=== PATIENT | female | born 1960 | race Caucasian/White ===

== ENCOUNTER 2017-11-08 14:48 | Emergency (ER) | payer MEDICAID ==
[~2017-11-08] VITALS: Ht 149.9 cm; Wt 71.4 kg
[~2017-11-08 14:48] MED LIST: ALBU8HFA PO; BACL10TA PO; BECL7.3A INH; DIPH-423 PO; ESTR2TAB PO; GABA600T2 OGT; OLOP2.5D EACHEYE; ONDA4TAB6 PO; ONDA8TAB13 PO; OXYC-145 PO; TRAZ-146 PO
[2017-11-08 14:55] VITALS: BP 128/92
== END 2017-11-08 20:05 | disposition left against medical advice (07) ==
LOC: ER 14:49
DX: R04.0 Epistaxis (principal); R51 Headache; Z53.21 Procedure and treatment not carried out due to patient leaving prior to being seen by health care provider

== ENCOUNTER 2018-03-28 10:33 | Inpatient (IN) | payer MEDICAID ==
[2018-03-26 16:48] LABS: BASOPHILS # (AUTO) 0.1 X10'3 (0-0.2); BASOPHILS % (AUTO) 0.6 % (0-1); EOSINOPHILS % (AUTO) 0.5 % (0-6); LYMPHOCYTES # (AUTO) 3.5 X10'3 (1.1-4.8); LYMPHOCYTES % (AUTO) 36.1 % (21-51); MEAN CORPUSCULAR HEMOGLOBIN 26.8 PG (27.0-31.0); MEAN CORPUSCULAR HGB CONC 32.7 % (33.0-36.5); MEAN CORPUSCULAR VOLUME 81.9 FL (78-98); MEAN PLATELET VOLUME 10.6 FL (7.4-10.4); MONOCYTES # (AUTO) 0.5 X10'3 (0-0.9); MONOCYTES % (AUTO) 5.1 % (2-12); NEUTROPHILS # (AUTO) 5.7 X10'3 (1.8-7.7); NEUTROPHILS % (AUTO) 57.7 % (42-75); PRE OP HEMATOCRIT 37.3 % (35.0-45.0); PRE OP HEMOGLOBIN 12.2 g/dL (12.0-16.0); PRE OP PLATELET COUNT 432 X10'3 (140-440); RED BLOOD COUNT 4.55 X10'6 (4.20-5.60); RED CELL DISTRIBUTION WIDTH 12.9 % (11.5-14.5)
[2018-03-26 16:52] LABS: PRE OP INR 1.1 INR; PRE OP PROTIME 10.9 SECONDS (9.0-12.0)
[2018-03-26 16:57] LABS: ALBUMIN 3.1 G/DL (3.4-5.0); ALBUMIN/GLOBULIN RATIO 0.6 (1.1-1.5); ALKALINE PHOSPHATASE 114 IU/L (46-116); BLOOD UREA NITROGEN 8 MG/DL (7-18); BUN/CREATININE RATIO 9.2 (6.6-38.0); CALCIUM 9.3 MG/DL (8.5-10.1); CHLORIDE 101 MMOL/L (99-107); CREATININE 0.87 MG/DL (0.40-0.90); PRE OP ALT 43 U/L (30-65); PRE OP ANION GAP 11 (8-16); PRE OP AST 24 U/L (10-37); PRE OP BILIRUB, TOTAL 0.2 MG/DL (0.0-1.0); PRE OP GLUCOSE 97 MG/DL (70-104); PRE OP SODIUM 138 MMOL/L (135-145); TOTAL CARBON DIOXIDE 25.7 MMOL/L (24-32); TOTAL PROTEIN 8.6 G/DL (6.4-8.2); eGFR 68 ML/MIN
[2018-03-26 17:00] LABS: PRE OP POTASSIUM 3.3 MMOL/L (3.4-5.1)
[2018-03-28] VITALS (20 sets, daily range): BP systolic 84–149; BP diastolic 48–77
[~2018-03-28] VITALS: Ht 149.9 cm; Wt 54.4 kg
[~2018-03-28 10:33] MED LIST changes: -BACL10TA PO; +CYAN10007 IM; +DOCU-267 PO; +MORP60TA66 PO; -OLOP2.5D EACHEYE; -ONDA4TAB6 PO; +ONDA8TAB13; -ONDA8TAB13 PO; -OXYC-145 PO; +OXYC15TA88 PO; +SERT50TA10 PO; -TRAZ-146 PO; +TRAZ-219 PO; +ceFOXitin 2 GM ADDvantage bag 100 ML IV ONE; +famotidine 20mg tablet PO ONE; +ringers solution, lacted 1,000 ML IV SCH
[2018-03-28] MEDS ORDERED: ALBUTEROL MDI PO PRN (11:35)
[2018-03-28] MEDS ORDERED: ondansetron 4mg rapidly disintigrating tab PO PRN (11:45)
[2018-03-28] MEDS ORDERED: ceFAZolin 1000mg inj ONE ×2 (12:38→13:20)
[2018-03-28] MEDS ORDERED: BUPIVAcaine/PF 2.5mg/ml (0.25%) 10ml vial ONE ×3 (12:38→15:43)
[2018-03-28] MEDS: gabapentin 300mg capsule PO SCH (13:00)
[2018-03-28] MEDS ORDERED: epiNEPHrine 1 mg/ml inj ONE (13:20)
[2018-03-28] MEDS: oxyCODONE IR 5mg (immed. release) tablet PO PRN ×2 (13:22→22:06)
[2018-03-28] MEDS ORDERED: naloxone 0.4 mg/ml inj IV PRN (14:00)
[2018-03-28] MEDS ORDERED: CADD PCA waste documentation MC PRN (14:00)
[2018-03-28] MEDS ORDERED: zolpidem 5mg tablet PO PRN (14:00)
[2018-03-28] MEDS ORDERED: MIDAZolam 5mg/5ml vial ONE ×2 (14:40→14:49)
[2018-03-28] MEDS ORDERED: fentaNYL /PF 50mcg/ml 5ml ampule ONE (14:41)
[2018-03-28] MEDS ORDERED: propofol inj 20 ML IV ONE (14:43)
[2018-03-28] MEDS ORDERED: rocuronium 10mg/ml inj IV ONE (14:43)
[2018-03-28] MEDS ORDERED: sevoflurane 250ml liquid IH ONE (14:44)
[2018-03-28] MEDS ORDERED: dexamethasone sod phosphate 10mg/ml inj ONE (14:44)
[2018-03-28] MEDS ORDERED: neostigmine methylsulfate 1 MG/ML 10ml vial ONE (14:44)
[2018-03-28] MEDS ORDERED: glycopyrrolate 0.2mg/ml inj ONE (14:44)
[2018-03-28] MEDS ORDERED: morphine sulfate /PF 0.5 MG/ML 10mL ampul ONE (15:51)
[2018-03-28] MEDS ORDERED: proCHLORperazine 10 MG/2 ml inj IV PRN ×2 (16:55→21:05)
[2018-03-28] MEDS ORDERED: ondansetron/PF 4mg/2ml inj IV PRN (16:55)
[2018-03-28] MEDS ORDERED: HYDROmorphone inj. 0.5 MG/0.5 ML DISP.SYRIN IV PRN (16:55)
[2018-03-28] MEDS ORDERED: meperidine/PF 25mg/ml syringe IV PRN ×3 (16:55)
[2018-03-28] MEDS ORDERED: ringers solution, lacted 1,000 ML IV SCH (16:55)
[2018-03-28] MEDS ORDERED: naloxone 2mg/2ml inj 2 MG in normal saline 500ml IV soln 500 ML IV PRN (16:57)
[2018-03-28] MEDS ORDERED: morphine/PF injection 20 MG, BUPIVAcaine 0.5% inj/PF 250 MG in normal saline 250ml IV s... EPI SCH (16:57)
[2018-03-28] MEDS ORDERED: fentaNYL/PF 50MCG/1 ML 2ML syringe ONE (17:48)
[2018-03-28] MEDS: HYDROmorphone inj. 0.5 MG/0.5 ML DISP.SYRIN IV PRN ×2 (19:01→19:20)
[2018-03-28] MEDS ORDERED: HYDROmorphone/NS 1 mg/ml CADD 50 ML IV SCH ×2 (19:30→21:00)
[2018-03-28] MEDS: HYDROmorphone/NS 1 mg/ml CADD 50 ML IV SCH ×3 (20:00→23:00)
[2018-03-28] MEDS: docusate sod 100mg capsule PO SCH (20:00)
[2018-03-28] MEDS ORDERED: non-formulary drug (Beclomethasone Dipropionate (Qvar 40 MCG INHALER) 2 PUFFS) INH SCH (20:00)
[2018-03-28] MEDS: morphine ER 30mg tablet PO SCH (20:55)
[2018-03-28] MEDS: traZODone 50mg tablet PO SCH (21:00)
[2018-03-28] MEDS: diphenhydrAMINE 25mg capsule PO SCH (21:00)
[2018-03-28] MEDS ORDERED: dextrose 5% water 500ml 500 ML IV ONE (21:05)
[2018-03-28] MEDS ORDERED: normal saline 500ml IV soln 500 ML IV ONE ×2 (21:45→23:20)
[2018-03-28] MEDS: Potassium Cl inj 20 MEQ in ringers solution, lacted 1,000 ML IV SCH ×2 (22:02→22:03)
[2018-03-29] VITALS (8 sets, daily range): BP systolic 91–107; BP diastolic 48–78
[2018-03-29] MEDS: ondansetron/PF 4mg/2ml inj IV PRN (00:04)
[2018-03-29] MEDS: sertraline 50mg tablet PO SCH ×2 (00:10→21:37)
[2018-03-29] MEDS: gabapentin 300mg capsule PO SCH ×4 (00:11→21:37)
[2018-03-29] MEDS: estradiol 1mg tablet PO SCH ×2 (00:11→21:37)
[2018-03-29] MEDS: traZODone 50mg tablet PO SCH ×2 (00:15→21:37)
[2018-03-29] MEDS: HYDROmorphone/NS 1 mg/ml CADD 50 ML IV SCH ×12 (01:00→23:00)
[2018-03-29] MEDS: albuterol 2.5 MG/3 ML nebule NEB SCH ×5 (02:15→21:01)
[2018-03-29 05:30] LABS: BASOPHILS % (AUTO) 0 % (0-1); EOSINOPHILS % (AUTO) 0 % (0-6); HEMATOCRIT 26.1 % (35.0-45.0); HEMOGLOBIN 8.7 g/dl (12.0-16.0); LYMPHOCYTES # (AUTO) 2.1 X10'3 (1.1-4.8); LYMPHOCYTES % (AUTO) 11.9 % (21-51); MEAN CORPUSCULAR HEMOGLOBIN 27.6 PG (27.0-31.0); MEAN CORPUSCULAR HGB CONC 33.3 % (33.0-36.5); MEAN CORPUSCULAR VOLUME 82.9 FL (78-98); MEAN PLATELET VOLUME 11.3 FL (7.4-10.4); MONOCYTES % (AUTO) 5.8 % (2-12); NEUTROPHILS # (AUTO) 14.9 X10'3 (1.8-7.7); NEUTROPHILS % (AUTO) 82.3 % (42-75); PLATELET COUNT 315 X10'3 (140-440); RED BLOOD COUNT 3.15 X10'6 (4.20-5.60); RED CELL DISTRIBUTION WIDTH 12.8 % (11.5-14.5)
[2018-03-29 05:49] LABS: ALBUMIN 2.2 G/DL (3.4-5.0); ANION GAP 13 (8-16); BLOOD UREA NITROGEN 7 MG/DL (7-18); BUN/CREATININE RATIO 9.6 (6.6-38.0); CALCIUM 8.1 MG/DL (8.5-10.1); CHLORIDE 105 MMOL/L (99-107); CREATININE 0.73 MG/DL (0.40-0.90); GLUCOSE 125 MG/DL (70-104); POTASSIUM 4.7 MMOL/L (3.5-5.1); SODIUM 139 MMOL/L (135-145); TOTAL CARBON DIOXIDE 20.9 MMOL/L (24-32); eGFR 83 ML/MIN
[2018-03-29] MEDS: Potassium Cl inj 20 MEQ in ringers solution, lacted 1,000 ML IV SCH ×2 (07:17→16:35)
[2018-03-29] MEDS: enoxaparin 40mg/0.4ml syringe SQ SCH (08:00)
[2018-03-29] MEDS: morphine ER 30mg tablet PO SCH ×2 (08:00→20:00)
[2018-03-29] MEDS: docusate sod 100mg capsule PO SCH ×2 (10:13→20:40)
[2018-03-29] MEDS ORDERED: normal saline 1000ml 1,000 ML IV ONE ×2 (10:50→11:10)
[2018-03-29] MEDS: LORazepam 2 mg/ml vial IV PRN ×3 (12:01→20:40)
[2018-03-29] MEDS: piperacillin/tazo 3.375gm/50ml 50 ML IV SCH ×2 (14:07→20:40)
[2018-03-29] MEDS: diphenhydrAMINE 25mg capsule PO SCH (21:00)
[2018-03-30] VITALS (12 sets, daily range): BP systolic 105–162; BP diastolic 63–84
[2018-03-30] MEDS: LORazepam 2 mg/ml vial IV PRN ×4 (00:35→20:07)
[2018-03-30] MEDS: Potassium Cl inj 20 MEQ in ringers solution, lacted 1,000 ML IV SCH ×3 (00:35→14:27)
[2018-03-30] MEDS: HYDROmorphone/NS 1 mg/ml CADD 50 ML IV SCH ×12 (01:00→23:00)
[2018-03-30] MEDS: piperacillin/tazo 3.375gm/50ml 50 ML IV SCH ×4 (02:32→20:08)
[2018-03-30 05:25] LABS: ALBUMIN 1.8 G/DL (3.4-5.0); ANION GAP 6 (8-16); BLOOD UREA NITROGEN 5 MG/DL (7-18); BUN/CREATININE RATIO 6.4 (6.6-38.0); CALCIUM 7.8 MG/DL (8.5-10.1); CHLORIDE 104 MMOL/L (99-107); CREATININE 0.78 MG/DL (0.40-0.90); GLUCOSE 105 MG/DL (70-104); SODIUM 135 MMOL/L (135-145); TOTAL CARBON DIOXIDE 25.1 MMOL/L (24-32); eGFR 77 ML/MIN
[2018-03-30] MEDS: albuterol 2.5 MG/3 ML nebule NEB SCH ×4 (07:13→20:06)
[2018-03-30] MEDS: gabapentin 300mg capsule PO SCH ×3 (07:30→20:06)
[2018-03-30] MEDS: docusate sod 100mg capsule PO SCH ×2 (07:30→20:00)
[2018-03-30] MEDS: enoxaparin 40mg/0.4ml syringe SQ SCH (07:30)
[2018-03-30] MEDS: morphine ER 30mg tablet PO SCH ×2 (07:31→20:00)
[2018-03-30 09:16] LABS: BASOPHILS # (AUTO) 0.1 X10'3 (0-0.2); BASOPHILS % (AUTO) 0.3 % (0-1); EOSINOPHILS % (AUTO) 0 % (0-6); LYMPHOCYTES # (AUTO) 1.8 X10'3 (1.1-4.8); LYMPHOCYTES % (AUTO) 8.2 % (21-51); MEAN CORPUSCULAR HEMOGLOBIN 28.1 PG (27.0-31.0); MEAN CORPUSCULAR HGB CONC 33.9 % (33.0-36.5); MEAN CORPUSCULAR VOLUME 82.8 FL (78-98); MEAN PLATELET VOLUME 11.5 FL (7.4-10.4); MONOCYTES % (AUTO) 4.6 % (2-12); NEUTROPHILS # (AUTO) 19.1 X10'3 (1.8-7.7); NEUTROPHILS % (AUTO) 86.9 % (42-75); PLATELET COUNT 231 X10'3 (140-440); RED CELL DISTRIBUTION WIDTH 13.1 % (11.5-14.5)
[2018-03-30 09:27] LABS: HEMATOCRIT 20.7 % (35.0-45.0)
[2018-03-30 10:09] LABS: LARGE PLATELETS FEW; PLATELET ESTIMATE NORMAL
[2018-03-30] MEDS: estradiol 1mg tablet PO SCH (20:06)
[2018-03-30] MEDS: lactobacillus rhamnosus 10,000 MMU CELLS/CAPSULE PO SCH (20:07)
[2018-03-30] MEDS: ondansetron/PF 4mg/2ml inj IV PRN (20:13)
[2018-03-30] MEDS: diphenhydrAMINE 25mg capsule PO SCH (21:53)
[2018-03-30] MEDS: sertraline 50mg tablet PO SCH (21:53)
[2018-03-30] MEDS: traZODone 50mg tablet PO SCH (21:53)
[2018-03-31] VITALS: BP 143/74
[2018-03-31] MEDS: HYDROmorphone/NS 1 mg/ml CADD 50 ML IV SCH ×9 (01:00→17:00)
[2018-03-31] MEDS: Potassium Cl inj 20 MEQ in ringers solution, lacted 1,000 ML IV SCH ×4 (01:06→22:47)
[2018-03-31] MEDS: piperacillin/tazo 3.375gm/50ml 50 ML IV SCH ×4 (01:07→20:20)
[2018-03-31] MEDS: LORazepam 2 mg/ml vial IV PRN (05:45)
[2018-03-31 06:36] LABS: BASOPHILS # (AUTO) 0.1 X10'3 (0-0.2); BASOPHILS % (AUTO) 0.4 % (0-1); EOSINOPHILS % (AUTO) 0.1 % (0-6); HEMATOCRIT 25.5 % (35.0-45.0); HEMOGLOBIN 8.7 g/dl (12.0-16.0); LYMPHOCYTES # (AUTO) 1.8 X10'3 (1.1-4.8); LYMPHOCYTES % (AUTO) 10.1 % (21-51); MEAN CORPUSCULAR HGB CONC 34.3 % (33.0-36.5); MEAN CORPUSCULAR VOLUME 84.5 FL (78-98); MEAN PLATELET VOLUME 11.3 FL (7.4-10.4); MONOCYTES # (AUTO) 0.9 X10'3 (0-0.9); MONOCYTES % (AUTO) 5.1 % (2-12); NEUTROPHILS # (AUTO) 15.4 X10'3 (1.8-7.7); NEUTROPHILS % (AUTO) 84.3 % (42-75); PLATELET COUNT 195 X10'3 (140-440); RED BLOOD COUNT 3.01 X10'6 (4.20-5.60); RED CELL DISTRIBUTION WIDTH 13.1 % (11.5-14.5); WHITE BLOOD COUNT 18.1 X10'3 (4.5-11.0)
[2018-03-31 06:52] LABS: ALBUMIN 1.7 G/DL (3.4-5.0); ANION GAP 9 (8-16); BLOOD UREA NITROGEN 5 MG/DL (7-18); BUN/CREATININE RATIO 7.7 (6.6-38.0); CALCIUM 7.8 MG/DL (8.5-10.1); CHLORIDE 105 MMOL/L (99-107); CREATININE 0.65 MG/DL (0.40-0.90); GLUCOSE 99 MG/DL (70-104); POTASSIUM 3.4 MMOL/L (3.5-5.1); SODIUM 140 MMOL/L (135-145); eGFR > 90 ML/MIN
[2018-03-31] MEDS: albuterol 2.5 MG/3 ML nebule NEB SCH ×2 (07:00→19:00)
[2018-03-31 07:08] VITALS: BP 142/78
[2018-03-31] MEDS: morphine ER 30mg tablet PO SCH ×2 (08:00→20:17)
[2018-03-31] MEDS: gabapentin 300mg capsule PO SCH ×3 (09:52→20:19)
[2018-03-31] MEDS: docusate sod 100mg capsule PO SCH ×2 (09:53→20:00)
[2018-03-31] MEDS: lactobacillus rhamnosus 10,000 MMU CELLS/CAPSULE PO SCH ×2 (09:53→20:15)
[2018-03-31] MEDS: enoxaparin 40mg/0.4ml syringe SQ SCH (09:54)
[2018-03-31 11:00] VITALS: BP 127/66
[2018-03-31 18:00] VITALS: BP 106/46
[2018-03-31] MEDS: oxyCODONE IR 5mg (immed. release) tablet PO PRN ×2 (18:02→22:28)
[2018-03-31] MEDS ORDERED: morphine ER 30mg tablet PO PRN (19:50)
[2018-03-31] MEDS ORDERED: magnesium Cl slow-release 64mg tablet PO PRN (19:50)
[2018-03-31] MEDS ORDERED: potassium Cl 20 mEq SR tablet PO PRN (19:50)
[2018-03-31] MEDS ORDERED: potassium Cl 40MEQ/NS 500ml 500 ML IV PRN ×2 (19:50)
[2018-03-31] MEDS ORDERED: magnesium 4gm in 100ml NS 100 ML IV PRN (19:50)
[2018-03-31] MEDS: potassium Cl 20 mEq SR tablet PO PRN (20:16)
[2018-03-31] MEDS: estradiol 1mg tablet PO SCH (20:17)
[2018-03-31] MEDS: diphenhydrAMINE 25mg capsule PO SCH (20:17)
[2018-03-31] MEDS: sertraline 50mg tablet PO SCH (20:18)
[2018-03-31] MEDS: traZODone 50mg tablet PO SCH (20:18)
[2018-04-01] VITALS: BP 140/75
[2018-04-01] MEDS: potassium Cl 20 mEq SR tablet PO PRN (00:20)
[2018-04-01] MEDS: morphine ER 30mg tablet PO SCH ×4 (02:00→20:00)
[2018-04-01] MEDS: piperacillin/tazo 3.375gm/50ml 50 ML IV SCH ×4 (02:02→20:32)
[2018-04-01] MEDS: Potassium Cl inj 20 MEQ in ringers solution, lacted 1,000 ML IV SCH ×3 (04:39→22:05)
[2018-04-01 05:10] LABS: BASOPHILS # (AUTO) 0.1 X10'3 (0-0.2); BASOPHILS % (AUTO) 0.5 % (0-1); EOSINOPHILS # (AUTO) 0.2 X10'3 (0-0.9); EOSINOPHILS % (AUTO) 2.1 % (0-6); HEMATOCRIT 26.9 % (35.0-45.0); HEMOGLOBIN 8.7 g/dl (12.0-16.0); LYMPHOCYTES # (AUTO) 2.7 X10'3 (1.1-4.8); LYMPHOCYTES % (AUTO) 24.5 % (21-51); MEAN CORPUSCULAR HEMOGLOBIN 27.6 PG (27.0-31.0); MEAN CORPUSCULAR HGB CONC 32.5 % (33.0-36.5); MEAN CORPUSCULAR VOLUME 84.9 FL (78-98); MEAN PLATELET VOLUME 10.5 FL (7.4-10.4); MONOCYTES # (AUTO) 0.7 X10'3 (0-0.9); MONOCYTES % (AUTO) 6.5 % (2-12); NEUTROPHILS # (AUTO) 7.2 X10'3 (1.8-7.7); NEUTROPHILS % (AUTO) 66.4 % (42-75); PLATELET COUNT 238 X10'3 (140-440); RED BLOOD COUNT 3.16 X10'6 (4.20-5.60); RED CELL DISTRIBUTION WIDTH 14.1 % (11.5-14.5); WHITE BLOOD COUNT 10.9 X10'3 (4.5-11.0)
[2018-04-01 05:28] LABS: ALBUMIN 1.7 G/DL (3.4-5.0); ANION GAP 7 (8-16); BLOOD UREA NITROGEN 5 MG/DL (7-18); BUN/CREATININE RATIO 6.2 (6.6-38.0); CALCIUM 7.9 MG/DL (8.5-10.1); CHLORIDE 107 MMOL/L (99-107); CREATININE 0.81 MG/DL (0.40-0.90); GLUCOSE 85 MG/DL (70-104); SODIUM 142 MMOL/L (135-145); TOTAL CARBON DIOXIDE 28.5 MMOL/L (24-32); eGFR 73 ML/MIN
[2018-04-01 07:00] VITALS: BP 142/83
[2018-04-01] MEDS: albuterol 2.5 MG/3 ML nebule NEB SCH ×4 (07:46→19:00)
[2018-04-01] MEDS: enoxaparin 40mg/0.4ml syringe SQ SCH (08:33)
[2018-04-01] MEDS: docusate sod 100mg capsule PO SCH ×2 (08:34→20:31)
[2018-04-01] MEDS: gabapentin 300mg capsule PO SCH ×3 (08:34→21:00)
[2018-04-01] MEDS: lactobacillus rhamnosus 10,000 MMU CELLS/CAPSULE PO SCH ×2 (08:34→20:31)
[2018-04-01] MEDS: oxyCODONE IR 5mg (immed. release) tablet PO PRN ×2 (11:12→15:36)
[2018-04-01] MEDS: ondansetron/PF 4mg/2ml inj IV PRN (11:41)
[2018-04-01 12:00] VITALS: BP 137/71
[2018-04-01] MEDS: LORazepam 2 mg/ml vial IV PRN (16:05)
[2018-04-01 20:00] VITALS: BP 107/66
[2018-04-01] MEDS: traZODone 50mg tablet PO SCH (21:00)
[2018-04-01] MEDS: diphenhydrAMINE 25mg capsule PO SCH (21:00)
[2018-04-01] MEDS: sertraline 50mg tablet PO SCH (21:00)
[2018-04-01] MEDS: estradiol 1mg tablet PO SCH (21:58)
[2018-04-02] VITALS: BP 121/72
[2018-04-02] MEDS: morphine ER 30mg tablet PO SCH ×4 (02:05→19:26)
[2018-04-02] MEDS: piperacillin/tazo 3.375gm/50ml 50 ML IV SCH ×4 (02:05→19:21)
[2018-04-02 03:24] LABS: BASOPHILS # (AUTO) 0.1 X10'3 (0-0.2); BASOPHILS % (AUTO) 0.7 % (0-1); EOSINOPHILS # (AUTO) 0.3 X10'3 (0-0.9); EOSINOPHILS % (AUTO) 3.4 % (0-6); HEMATOCRIT 23.4 % (35.0-45.0); HEMOGLOBIN 7.6 g/dl (12.0-16.0); LYMPHOCYTES # (AUTO) 1.9 X10'3 (1.1-4.8); LYMPHOCYTES % (AUTO) 23.7 % (21-51); MEAN CORPUSCULAR HEMOGLOBIN 27.6 PG (27.0-31.0); MEAN CORPUSCULAR HGB CONC 32.5 % (33.0-36.5); MEAN CORPUSCULAR VOLUME 84.9 FL (78-98); MEAN PLATELET VOLUME 9.9 FL (7.4-10.4); MONOCYTES # (AUTO) 0.5 X10'3 (0-0.9); MONOCYTES % (AUTO) 6.6 % (2-12); NEUTROPHILS # (AUTO) 5.3 X10'3 (1.8-7.7); NEUTROPHILS % (AUTO) 65.6 % (42-75); PLATELET COUNT 223 X10'3 (140-440); RED BLOOD COUNT 2.76 X10'6 (4.20-5.60); RED CELL DISTRIBUTION WIDTH 14.4 % (11.5-14.5); WHITE BLOOD COUNT 8.1 X10'3 (4.5-11.0)
[2018-04-02 03:28] LABS: ALBUMIN 1.5 G/DL (3.4-5.0); ANION GAP 4 (8-16); BLOOD UREA NITROGEN 3 MG/DL (7-18); BUN/CREATININE RATIO 3.6 (6.6-38.0); CALCIUM 7.7 MG/DL (8.5-10.1); CHLORIDE 105 MMOL/L (99-107); CREATININE 0.83 MG/DL (0.40-0.90); GLUCOSE 94 MG/DL (70-104); POTASSIUM 3.7 MMOL/L (3.5-5.1); SODIUM 139 MMOL/L (135-145); TOTAL CARBON DIOXIDE 29.7 MMOL/L (24-32); eGFR 71 ML/MIN
[2018-04-02] MEDS: Potassium Cl inj 20 MEQ in ringers solution, lacted 1,000 ML IV SCH ×3 (05:12→23:54)
[2018-04-02] MEDS: albuterol 2.5 MG/3 ML nebule NEB SCH ×4 (06:48→19:42)
[2018-04-02] MEDS: gabapentin 300mg capsule PO SCH (07:21)
[2018-04-02] MEDS: docusate sod 100mg capsule PO SCH ×2 (07:21→19:25)
[2018-04-02] MEDS: lactobacillus rhamnosus 10,000 MMU CELLS/CAPSULE PO SCH ×2 (07:21→19:25)
[2018-04-02] MEDS: enoxaparin 40mg/0.4ml syringe SQ SCH ×2 (07:22→10:04)
[2018-04-02] MEDS: oxyCODONE IR 5mg (immed. release) tablet PO PRN (09:59)
[2018-04-02 11:00] VITALS: BP 106/63
[2018-04-02] MEDS ORDERED: gabapentin 300mg capsule PO SCH (13:00)
[2018-04-02] MEDS: gabapentin 100mg capsule PO SCH ×2 (13:37→21:46)
[2018-04-02] MEDS ORDERED: lactose-reduced food (Ensure High Protein) 237ml bottle PO SCH (18:00)
[2018-04-02 20:00] VITALS: BP 134/75
[2018-04-02] MEDS: sertraline 50mg tablet PO SCH (21:46)
[2018-04-02] MEDS: diphenhydrAMINE 25mg capsule PO SCH (21:46)
[2018-04-02] MEDS: estradiol 1mg tablet PO SCH (21:46)
[2018-04-03] VITALS (10 sets, daily range): BP systolic 114–144; BP diastolic 55–82
[2018-04-03] MEDS: morphine ER 30mg tablet PO SCH ×4 (02:05→20:11)
[2018-04-03] MEDS: piperacillin/tazo 3.375gm/50ml 50 ML IV SCH ×4 (02:05→20:13)
[2018-04-03] MEDS: LORazepam 2 mg/ml vial IV PRN (02:13)
[2018-04-03] MEDS: albuterol 2.5 MG/3 ML nebule NEB SCH ×3 (06:59→19:00)
[2018-04-03] MEDS: docusate sod 100mg capsule PO SCH ×3 (08:00→20:10)
[2018-04-03] MEDS: gabapentin 100mg capsule PO SCH ×3 (08:53→22:35)
[2018-04-03] MEDS: lactobacillus rhamnosus 10,000 MMU CELLS/CAPSULE PO SCH ×2 (08:54→20:11)
[2018-04-03] MEDS: Potassium Cl inj 20 MEQ in ringers solution, lacted 1,000 ML IV SCH (09:00)
[2018-04-03] MEDS: ondansetron/PF 4mg/2ml inj IV PRN (09:05)
[2018-04-03] MEDS: lactose-reduced food (Ensure High Protein) 237ml bottle PO SCH ×2 (13:00→18:00)
[2018-04-03 13:23] LABS: BASOPHILS % (AUTO) 0.5 % (0-1); EOSINOPHILS # (AUTO) 0.3 X10'3 (0-0.9); EOSINOPHILS % (AUTO) 4.3 % (0-6); HEMATOCRIT 25.5 % (35.0-45.0); HEMOGLOBIN 8.2 g/dl (12.0-16.0); LYMPHOCYTES # (AUTO) 1.8 X10'3 (1.1-4.8); MEAN CORPUSCULAR HEMOGLOBIN 27.5 PG (27.0-31.0); MEAN CORPUSCULAR HGB CONC 32.2 % (33.0-36.5); MEAN CORPUSCULAR VOLUME 85.5 FL (78-98); MEAN PLATELET VOLUME 9.7 FL (7.4-10.4); MONOCYTES # (AUTO) 0.5 X10'3 (0-0.9); MONOCYTES % (AUTO) 6.3 % (2-12); NEUTROPHILS # (AUTO) 5.1 X10'3 (1.8-7.7); NEUTROPHILS % (AUTO) 65.9 % (42-75); PLATELET COUNT 280 X10'3 (140-440); RED BLOOD COUNT 2.98 X10'6 (4.20-5.60); RED CELL DISTRIBUTION WIDTH 14.7 % (11.5-14.5); WHITE BLOOD COUNT 7.7 X10'3 (4.5-11.0)
[2018-04-03] MEDS ORDERED: MIDAZolam 5mg/5ml vial ONE (16:50)
[2018-04-03] MEDS ORDERED: ondansetron/PF 4mg/2ml inj ONE (16:51)
[2018-04-03] MEDS ORDERED: fentaNYL/PF 50MCG/1 ML 2ML syringe ONE ×2 (17:00→17:13)
[2018-04-03] MEDS ORDERED: ketamine 50mg/5ml syringe ONE (17:02)
[2018-04-03] MEDS: traZODone 50mg tablet PO SCH (20:11)
[2018-04-03] MEDS: diphenhydrAMINE 25mg capsule PO SCH (21:00)
[2018-04-03] MEDS: estradiol 1mg tablet PO SCH (22:33)
[2018-04-03] MEDS: sertraline 50mg tablet PO SCH (22:36)
[2018-04-04] VITALS (8 sets, daily range): BP systolic 100–128; BP diastolic 56–79
[2018-04-04] MEDS: LORazepam 2 mg/ml vial IV PRN ×3 (01:51→23:36)
[2018-04-04] MEDS: piperacillin/tazo 3.375gm/50ml 50 ML IV SCH ×4 (02:12→20:02)
[2018-04-04] MEDS: morphine ER 30mg tablet PO SCH ×4 (04:05→20:02)
[2018-04-04] MEDS: albuterol 2.5 MG/3 ML nebule NEB SCH ×4 (07:00→19:00)
[2018-04-04] MEDS: lactobacillus rhamnosus 10,000 MMU CELLS/CAPSULE PO SCH ×2 (07:39→20:01)
[2018-04-04] MEDS: gabapentin 100mg capsule PO SCH ×3 (07:39→21:34)
[2018-04-04] MEDS: lactose-reduced food (Ensure High Protein) 237ml bottle PO SCH ×3 (08:00→18:20)
[2018-04-04] MEDS: docusate sod 100mg capsule PO SCH ×2 (08:00→20:01)
[2018-04-04] MEDS: oxyCODONE IR 5mg (immed. release) tablet PO PRN ×2 (09:53→21:37)
[2018-04-04 11:14] LABS: HEMATOCRIT 25.2 % (35.0-45.0); HEMOGLOBIN 8.2 g/dl (12.0-16.0); MEAN CORPUSCULAR HGB CONC 32.5 % (33.0-36.5); MEAN CORPUSCULAR VOLUME 86.1 FL (78-98); MEAN PLATELET VOLUME 10.3 FL (7.4-10.4); PLATELET COUNT 306 X10'3 (140-440); RED BLOOD COUNT 2.93 X10'6 (4.20-5.60); RED CELL DISTRIBUTION WIDTH 14.3 % (11.5-14.5)
[2018-04-04] MEDS: traZODone 50mg tablet PO SCH ×2 (20:01→21:00)
[2018-04-04] MEDS: diphenhydrAMINE 25mg capsule PO SCH (21:34)
[2018-04-04] MEDS: estradiol 1mg tablet PO SCH (21:34)
[2018-04-04] MEDS: sertraline 50mg tablet PO SCH (21:34)
[2018-04-05] MEDS: morphine ER 30mg tablet PO SCH ×4 (01:35→19:31)
[2018-04-05] MEDS: piperacillin/tazo 3.375gm/50ml 50 ML IV SCH ×4 (01:35→20:17)
[2018-04-05] MEDS: albuterol 2.5 MG/3 ML nebule NEB SCH ×3 (06:59→19:00)
[2018-04-05 07:44] VITALS: BP 103/60
[2018-04-05] MEDS: gabapentin 100mg capsule PO SCH ×3 (07:56→20:17)
[2018-04-05] MEDS: lactobacillus rhamnosus 10,000 MMU CELLS/CAPSULE PO SCH ×2 (07:56→19:31)
[2018-04-05] MEDS: docusate sod 100mg capsule PO SCH ×2 (07:57→19:32)
[2018-04-05] MEDS: lactose-reduced food (Ensure High Protein) 237ml bottle PO SCH ×3 (07:57→18:00)
[2018-04-05 08:46] LABS: ALBUMIN 1.7 G/DL (3.4-5.0); ANION GAP 6 (8-16); BLOOD UREA NITROGEN 5 MG/DL (7-18); BUN/CREATININE RATIO 5.7 (6.6-38.0); CALCIUM 7.8 MG/DL (8.5-10.1); CHLORIDE 105 MMOL/L (99-107); CREATININE 0.88 MG/DL (0.40-0.90); GLUCOSE 132 MG/DL (70-104); POTASSIUM 3.4 MMOL/L (3.5-5.1); SODIUM 141 MMOL/L (135-145); TOTAL CARBON DIOXIDE 30.2 MMOL/L (24-32); eGFR 67 ML/MIN
[2018-04-05] MEDS: oxyCODONE IR 5mg (immed. release) tablet PO PRN ×2 (10:43→23:39)
[2018-04-05 11:00] VITALS: BP 92/39
[2018-04-05] MEDS: HYDROmorphone 1 mg/ml syringe IV PRN (11:30)
[2018-04-05 12:45] LABS: BASOPHILS % (AUTO) 0.4 % (0-1); EOSINOPHILS # (AUTO) 0.4 X10'3 (0-0.9); EOSINOPHILS % (AUTO) 3.1 % (0-6); HEMATOCRIT 27.6 % (35.0-45.0); HEMOGLOBIN 8.8 g/dl (12.0-16.0); LYMPHOCYTES % (AUTO) 24.1 % (21-51); MEAN CORPUSCULAR HEMOGLOBIN 27.3 PG (27.0-31.0); MEAN CORPUSCULAR HGB CONC 31.8 % (33.0-36.5); MEAN CORPUSCULAR VOLUME 85.7 FL (78-98); MEAN PLATELET VOLUME 10.6 FL (7.4-10.4); MONOCYTES # (AUTO) 0.5 X10'3 (0-0.9); MONOCYTES % (AUTO) 4.2 % (2-12); NEUTROPHILS # (AUTO) 8.6 X10'3 (1.8-7.7); NEUTROPHILS % (AUTO) 68.2 % (42-75); PLATELET COUNT 374 X10'3 (140-440); RED BLOOD COUNT 3.22 X10'6 (4.20-5.60); RED CELL DISTRIBUTION WIDTH 14.8 % (11.5-14.5); WHITE BLOOD COUNT 12.6 X10'3 (4.5-11.0)
[2018-04-05] MEDS ORDERED: potassium Cl 20 mEq SR tablet PO PRN ×2 (12:45)
[2018-04-05] MEDS ORDERED: potassium Cl 40MEQ/NS 500ml 500 ML IV PRN ×2 (12:45)
[2018-04-05] MEDS ORDERED: magnesium Cl slow-release 64mg tablet PO PRN (12:45)
[2018-04-05] MEDS ORDERED: magnesium 4gm in 100ml NS 100 ML IV PRN (12:45)
[2018-04-05 13:24] LABS: GIANT PLATELET FEW; LARGE PLATELETS FEW; PLATELET ESTIMATE NORMAL
[2018-04-05 16:12] VITALS: BP 95/54
[2018-04-05 18:00] VITALS: BP 117/66
[2018-04-05] MEDS: traZODone 50mg tablet PO SCH (19:32)
[2018-04-05] MEDS: estradiol 1mg tablet PO SCH (20:16)
[2018-04-05] MEDS: diphenhydrAMINE 25mg capsule PO SCH (20:16)
[2018-04-05] MEDS: sertraline 50mg tablet PO SCH (20:16)
[2018-04-05] MEDS: LORazepam 2 mg/ml vial IV PRN (20:41)
[2018-04-06] VITALS: BP 135/54
[2018-04-06] MEDS: morphine ER 30mg tablet PO SCH ×4 (02:04→19:10)
[2018-04-06] MEDS: piperacillin/tazo 3.375gm/50ml 50 ML IV SCH ×4 (02:04→19:10)
[2018-04-06] MEDS: LORazepam 2 mg/ml vial IV PRN ×3 (02:10→19:09)
[2018-04-06 07:00] VITALS: BP 110/63
[2018-04-06] MEDS: albuterol 2.5 MG/3 ML nebule NEB SCH ×4 (07:06→19:07)
[2018-04-06 08:00] VITALS: BP 110/63
[2018-04-06] MEDS: lactose-reduced food (Ensure High Protein) 237ml bottle PO SCH ×4 (08:00→18:31)
[2018-04-06] MEDS: lactobacillus rhamnosus 10,000 MMU CELLS/CAPSULE PO SCH ×2 (09:21→19:09)
[2018-04-06] MEDS: enoxaparin 40mg/0.4ml syringe SQ SCH (09:21)
[2018-04-06] MEDS: docusate sod 100mg capsule PO SCH ×2 (09:22→19:10)
[2018-04-06] MEDS: gabapentin 100mg capsule PO SCH ×3 (09:22→20:33)
[2018-04-06 11:00] VITALS: BP 109/59
[2018-04-06] MEDS: oxyCODONE IR 5mg (immed. release) tablet PO PRN ×2 (12:56→23:44)
[2018-04-06 18:00] VITALS: BP 138/66
[2018-04-06] MEDS: traZODone 50mg tablet PO SCH (19:10)
[2018-04-06] MEDS: diphenhydrAMINE 25mg capsule PO SCH (20:33)
[2018-04-06] MEDS: sertraline 50mg tablet PO SCH (20:34)
[2018-04-06] MEDS: estradiol 1mg tablet PO SCH (20:34)
[2018-04-06] MEDS ORDERED: albuterol 2.5 MG/3 ML nebule NEB PRN (23:25)
[2018-04-07] VITALS: BP 119/80
[2018-04-07] MEDS: LORazepam 2 mg/ml vial IV PRN ×4 (01:33→20:38)
[2018-04-07] MEDS: piperacillin/tazo 3.375gm/50ml 50 ML IV SCH ×4 (01:33→19:52)
[2018-04-07] MEDS: morphine ER 30mg tablet PO SCH ×4 (01:33→19:52)
[2018-04-07] MEDS: gabapentin 100mg capsule PO SCH ×3 (07:26→20:37)
[2018-04-07] MEDS: docusate sod 100mg capsule PO SCH ×2 (07:26→19:52)
[2018-04-07] MEDS: enoxaparin 40mg/0.4ml syringe SQ SCH (07:26)
[2018-04-07] MEDS: lactobacillus rhamnosus 10,000 MMU CELLS/CAPSULE PO SCH ×2 (07:26→19:52)
[2018-04-07 07:45] VITALS: BP 120/63
[2018-04-07] MEDS: lactose-reduced food (Ensure High Protein) 237ml bottle PO SCH ×3 (08:00→18:13)
[2018-04-07 12:00] VITALS: BP 113/66
[2018-04-07] MEDS: HYDROmorphone 1 mg/ml syringe IV PRN ×2 (12:05→16:32)
[2018-04-07 18:00] VITALS: BP 115/68
[2018-04-07] MEDS: traZODone 50mg tablet PO SCH (19:52)
[2018-04-07] MEDS: estradiol 1mg tablet PO SCH (20:37)
[2018-04-07] MEDS: diphenhydrAMINE 25mg capsule PO SCH (20:37)
[2018-04-07] MEDS: sertraline 50mg tablet PO SCH (20:37)
[2018-04-07] MEDS: oxyCODONE IR 5mg (immed. release) tablet PO PRN (21:47)
[2018-04-08] VITALS: BP 112/69
[2018-04-08] MEDS: morphine ER 30mg tablet PO SCH ×4 (01:49→19:48)
[2018-04-08] MEDS: LORazepam 2 mg/ml vial IV PRN ×4 (01:49→19:43)
[2018-04-08] MEDS: oxyCODONE IR 5mg (immed. release) tablet PO PRN ×3 (04:19→23:00)
[2018-04-08 07:40] VITALS: BP 138/79
[2018-04-08] MEDS: gabapentin 100mg capsule PO SCH ×3 (07:52→21:03)
[2018-04-08] MEDS: lactobacillus rhamnosus 10,000 MMU CELLS/CAPSULE PO SCH ×2 (07:52→19:43)
[2018-04-08] MEDS: enoxaparin 40mg/0.4ml syringe SQ SCH (07:52)
[2018-04-08] MEDS: docusate sod 100mg capsule PO SCH ×2 (07:52→19:44)
[2018-04-08] MEDS: lactose-reduced food (Ensure High Protein) 237ml bottle PO SCH ×3 (07:56→18:04)
[2018-04-08 11:50] VITALS: BP 131/66
[2018-04-08 18:30] VITALS: BP 118/63
[2018-04-08] MEDS: traZODone 50mg tablet PO SCH (19:44)
[2018-04-08] MEDS: diphenhydrAMINE 25mg capsule PO SCH (21:03)
[2018-04-08] MEDS: sertraline 50mg tablet PO SCH (21:03)
[2018-04-08] MEDS: estradiol 1mg tablet PO SCH (21:03)
[2018-04-09] VITALS: BP 133/70
[2018-04-09] MEDS: morphine ER 30mg tablet PO SCH ×4 (02:23→20:31)
[2018-04-09] MEDS: oxyCODONE IR 5mg (immed. release) tablet PO PRN ×2 (04:19→19:09)
[2018-04-09 07:34] VITALS: BP 123/69
[2018-04-09] MEDS: docusate sod 100mg capsule PO SCH ×2 (08:17→20:31)
[2018-04-09] MEDS: lactobacillus rhamnosus 10,000 MMU CELLS/CAPSULE PO SCH ×2 (08:17→20:31)
[2018-04-09] MEDS: gabapentin 100mg capsule PO SCH ×3 (08:18→20:32)
[2018-04-09] MEDS: enoxaparin 40mg/0.4ml syringe SQ SCH (08:19)
[2018-04-09] MEDS: lactose-reduced food (Ensure High Protein) 237ml bottle PO SCH ×3 (08:20→18:00)
[2018-04-09] MEDS: ondansetron/PF 4mg/2ml inj IV PRN (09:08)
[2018-04-09] MEDS: LORazepam 2 mg/ml vial IV PRN (10:37)
[2018-04-09 11:36] VITALS: BP 108/70
[2018-04-09 16:15] VITALS: BP 111/65
[2018-04-09] MEDS: normal saline 1000ml 1,000 ML IV SCH (16:56)
[2018-04-09 17:43] LABS: BASOPHILS # (AUTO) 0.1 X10'3 (0-0.2); EOSINOPHILS # (AUTO) 0.3 X10'3 (0-0.9); EOSINOPHILS % (AUTO) 2.7 % (0-6); HEMATOCRIT 30.2 % (35.0-45.0); HEMOGLOBIN 9.8 g/dl (12.0-16.0); LYMPHOCYTES # (AUTO) 2.6 X10'3 (1.1-4.8); LYMPHOCYTES % (AUTO) 28.3 % (21-51); MEAN CORPUSCULAR HEMOGLOBIN 27.6 PG (27.0-31.0); MEAN CORPUSCULAR HGB CONC 32.3 % (33.0-36.5); MEAN CORPUSCULAR VOLUME 85.5 FL (78-98); MEAN PLATELET VOLUME 9.4 FL (7.4-10.4); MONOCYTES # (AUTO) 0.6 X10'3 (0-0.9); MONOCYTES % (AUTO) 6.9 % (2-12); NEUTROPHILS # (AUTO) 5.7 X10'3 (1.8-7.7); NEUTROPHILS % (AUTO) 61.1 % (42-75); PLATELET COUNT 419 X10'3 (140-440); RED BLOOD COUNT 3.53 X10'6 (4.20-5.60); RED CELL DISTRIBUTION WIDTH 15.9 % (11.5-14.5); WHITE BLOOD COUNT 9.3 X10'3 (4.5-11.0)
[2018-04-09 17:58] LABS: ALANINE AMINOTRANSFERASE 26 U/L (12-78); ALBUMIN 1.9 G/DL (3.4-5.0); ALBUMIN/GLOBULIN RATIO 0.4 (1.1-1.5); ALKALINE PHOSPHATASE 109 IU/L (46-116); ANION GAP 7 (8-16); ASPARTATE AMINO TRANSFERASE 32 U/L (10-37); BILIRUBIN,TOTAL 0.1 MG/DL (0.1-1.0); BLOOD UREA NITROGEN 6 MG/DL (7-18); BUN/CREATININE RATIO 8.5 (6.6-38.0); CALCIUM 8.4 MG/DL (8.5-10.1); CHLORIDE 105 MMOL/L (99-107); CREATININE 0.71 MG/DL (0.40-0.90); GLUCOSE 94 MG/DL (70-104); POTASSIUM 4.1 MMOL/L (3.5-5.1); SODIUM 138 MMOL/L (135-145); TOTAL CARBON DIOXIDE 26.3 MMOL/L (24-32); TOTAL PROTEIN 6.7 G/DL (6.4-8.2); eGFR 85 ML/MIN
[2018-04-09 18:30] VITALS: BP 133/69
[2018-04-09] MEDS: traZODone 50mg tablet PO SCH (20:31)
[2018-04-09] MEDS: sertraline 50mg tablet PO SCH (20:32)
[2018-04-09] MEDS: estradiol 1mg tablet PO SCH (20:32)
[2018-04-09] MEDS: diphenhydrAMINE 25mg capsule PO SCH (20:32)
[2018-04-09] MEDS: LORazepam 1 MG tablet PO PRN (21:27)
[2018-04-10] VITALS: BP 124/60
[2018-04-10] MEDS: morphine ER 30mg tablet PO SCH ×4 (01:49→19:24)
[2018-04-10] MEDS: oxyCODONE IR 5mg (immed. release) tablet PO PRN ×3 (05:11→20:44)
[2018-04-10 05:12] LABS: BASOPHILS # (AUTO) 0.1 X10'3 (0-0.2); BASOPHILS % (AUTO) 0.7 % (0-1); EOSINOPHILS # (AUTO) 0.3 X10'3 (0-0.9); EOSINOPHILS % (AUTO) 2.7 % (0-6); HEMATOCRIT 29.2 % (35.0-45.0); HEMOGLOBIN 9.4 g/dl (12.0-16.0); LYMPHOCYTES # (AUTO) 2.9 X10'3 (1.1-4.8); LYMPHOCYTES % (AUTO) 29.4 % (21-51); MEAN CORPUSCULAR HEMOGLOBIN 27.8 PG (27.0-31.0); MEAN CORPUSCULAR HGB CONC 32.1 % (33.0-36.5); MEAN CORPUSCULAR VOLUME 86.5 FL (78-98); MEAN PLATELET VOLUME 10.3 FL (7.4-10.4); MONOCYTES # (AUTO) 0.6 X10'3 (0-0.9); NEUTROPHILS % (AUTO) 61.2 % (42-75); PLATELET COUNT 407 X10'3 (140-440); RED BLOOD COUNT 3.38 X10'6 (4.20-5.60); RED CELL DISTRIBUTION WIDTH 15.7 % (11.5-14.5); WHITE BLOOD COUNT 9.9 X10'3 (4.5-11.0)
[2018-04-10] MEDS: normal saline 1000ml 1,000 ML IV SCH ×2 (05:23→18:01)
[2018-04-10 05:27] LABS: ALANINE AMINOTRANSFERASE 26 U/L (12-78); ALBUMIN 1.8 G/DL (3.4-5.0); ALBUMIN/GLOBULIN RATIO 0.4 (1.1-1.5); ALKALINE PHOSPHATASE 105 IU/L (46-116); ANION GAP 8 (8-16); ASPARTATE AMINO TRANSFERASE 33 U/L (10-37); BILIRUBIN,TOTAL 0.1 MG/DL (0.1-1.0); BLOOD UREA NITROGEN 7 MG/DL (7-18); CHLORIDE 106 MMOL/L (99-107); CREATININE 0.78 MG/DL (0.40-0.90); GLUCOSE 92 MG/DL (70-104); MAGNESIUM 1.9 MG/DL (1.5-2.4); POTASSIUM 3.9 MMOL/L (3.5-5.1); SODIUM 139 MMOL/L (135-145); TOTAL CARBON DIOXIDE 25.3 MMOL/L (24-32); TOTAL PROTEIN 6.5 G/DL (6.4-8.2); eGFR 77 ML/MIN
[2018-04-10 07:00] VITALS: BP 129/68
[2018-04-10] MEDS: gabapentin 100mg capsule PO SCH ×3 (07:39→20:39)
[2018-04-10] MEDS: docusate sod 100mg capsule PO SCH ×2 (07:39→19:24)
[2018-04-10] MEDS: lactobacillus rhamnosus 10,000 MMU CELLS/CAPSULE PO SCH ×2 (07:40→19:24)
[2018-04-10] MEDS: enoxaparin 40mg/0.4ml syringe SQ SCH (07:42)
[2018-04-10] MEDS: lactose-reduced food (Ensure High Protein) 237ml bottle PO SCH ×3 (07:43→13:31)
[2018-04-10 11:00] VITALS: BP 127/82
[2018-04-10] MEDS: HYDROmorphone 1 mg/ml syringe IV PRN ×2 (13:52→14:58)
[2018-04-10] MEDS: LORazepam 1 MG tablet PO PRN (13:56)
[2018-04-10] MEDS ORDERED: HYDROmorphone inj. 0.5 MG/0.5 ML DISP.SYRIN IV ONE (14:55)
[2018-04-10] MEDS ORDERED: HYDROmorphone 1 mg/ml syringe ONE (14:55)
[2018-04-10] MEDS: ondansetron/PF 4mg/2ml inj IV PRN (17:53)
[2018-04-10] MEDS: traZODone 50mg tablet PO SCH (19:24)
[2018-04-10 20:00] VITALS: BP 121/65
[2018-04-10] MEDS: diphenhydrAMINE 25mg capsule PO SCH (20:36)
[2018-04-10] MEDS: sertraline 50mg tablet PO SCH (20:39)
[2018-04-10] MEDS: estradiol 1mg tablet PO SCH (20:43)
[2018-04-11] VITALS: BP 122/67
[2018-04-11] MEDS: LORazepam 1 MG tablet PO PRN ×2 (00:53→07:55)
[2018-04-11] MEDS: oxyCODONE IR 5mg (immed. release) tablet PO PRN (00:54)
[2018-04-11] MEDS: morphine ER 30mg tablet PO SCH ×2 (02:19→07:49)
[2018-04-11] MEDS: HYDROmorphone 1 mg/ml syringe IV PRN (03:47)
[2018-04-11] MEDS: docusate sod 100mg capsule PO SCH (07:48)
[2018-04-11] MEDS: lactobacillus rhamnosus 10,000 MMU CELLS/CAPSULE PO SCH (07:48)
[2018-04-11] MEDS: gabapentin 100mg capsule PO SCH (07:49)
[2018-04-11] MEDS: enoxaparin 40mg/0.4ml syringe SQ SCH (07:50)
[2018-04-11] MEDS: normal saline 1000ml 1,000 ML IV SCH (07:51)
[2018-04-11] MEDS: lactose-reduced food (Ensure High Protein) 237ml bottle PO SCH (07:51)
[2018-04-11 08:00] VITALS: BP 110/59
[2018-04-11] MEDS ORDERED: cyanocobalamin 1,000 mcg/ml inj IM SCH (08:00)
[2018-04-11 08:32] VITALS: BP 110/59
== END 2018-04-11 13:12 | DRG 231 ==
LOC: PAS IN 10:33 → SUR 3N 10:46 → EDSTATUS 12:30 → PACU 17:29 → SUR 3N 20:05
PROVIDERS: ADMIT Surgery; ATTEND Family Medicine
PROC: 0DQN0ZZ Repair Sigmoid Colon, Open Approach (ICD-10-PCS; 2018-03-28)
PROC: 0DNW0ZZ Release Peritoneum, Open Approach (ICD-10-PCS; 2018-03-28)
PROC: 0T9B80Z Drainage of Bladder with Drainage Device, Via Natural or Artificial Opening Endoscopic (ICD-10-PCS; 2018-03-28)
PROC: 0DBN0ZZ Excision of Sigmoid Colon, Open Approach (ICD-10-PCS; 2018-03-28 14:44)
PROC: 30233N1 Transfusion of Nonautologous Red Blood Cells into Peripheral Vein, Percutaneous Approach (ICD-10-PCS; principal; 2018-03-30)
PROC: 2W03X6Z Change Pressure Dressing on Abdominal Wall (ICD-10-PCS; 2018-04-03)
DX: K63.2 Fistula of intestine (principal); R34 Anuria and oliguria; E43 Unspecified severe protein-calorie malnutrition; D62 Acute posthemorrhagic anemia; K56.7 Ileus, unspecified; D72.829 Elevated white blood cell count, unspecified; E87.6 Hypokalemia; F32.9 Major depressive disorder, single episode, unspecified; F41.1 Generalized anxiety disorder; G25.81 Restless legs syndrome; G89.4 Chronic pain syndrome; E66.9 Obesity, unspecified; R00.0 Tachycardia, unspecified; G43.909 Migraine, unspecified, not intractable, without status migrainosus; J45.909 Unspecified asthma, uncomplicated; K57.30 Diverticulosis of large intestine without perforation or abscess without bleeding; K66.0 Peritoneal adhesions (postprocedural) (postinfection); Z85.3 Personal history of malignant neoplasm of breast; Z90.710 Acquired absence of both cervix and uterus; Z85.43 Personal history of malignant neoplasm of ovary; Z90.13 Acquired absence of bilateral breasts and nipples; Z68.24 Body mass index [BMI] 24.0-24.9, adult; Z88.5 Allergy status to narcotic agent; Z88.8 Allergy status to other drugs, medicaments and biological substances; Z88.6 Allergy status to analgesic agent; Z91.040 Latex allergy status; Z79.899 Other long term (current) drug therapy
CPT/HCPCS: 36415; 71045; 76001; 80048; 80053; 82948; 83735; 85025; 85027; 85610; 85730; 86885; 86900; 86901; 86920; 87070; 93005; 94640; 94760; 97110; 97116; 97530; A6251; A7000; C1758; C1769; G0378; J0171; J0690; J0694; J0780; J1100; J1170; J1650; J2060; J2250; J2274; J2310; J2405; J2543; J2704; J2710; J3010; J3420; J3480; J3490; J7030; J7120; P9016; Q0163

== ENCOUNTER 2018-04-29 18:09 | Inpatient (IN) | payer MEDICAID ==
[~2018-04-29] VITALS: Ht 149.9 cm; Wt 53.2 kg
[2018-04-29 19:00] LABS: BASOPHILS # (AUTO) 0.1 X10'3 (0-0.2); BASOPHILS % (AUTO) 0.8 % (0-1); EOSINOPHILS # (AUTO) 0.2 X10'3 (0-0.9); EOSINOPHILS % (AUTO) 1.6 % (0-6); HEMATOCRIT 35.4 % (35.0-45.0); HEMOGLOBIN 11.3 g/dl (12.0-16.0); LYMPHOCYTES # (AUTO) 3.6 X10'3 (1.1-4.8); MEAN CORPUSCULAR HEMOGLOBIN 26.7 PG (27.0-31.0); MEAN CORPUSCULAR VOLUME 83.7 FL (78-98); MEAN PLATELET VOLUME 11.4 FL (7.4-10.4); MONOCYTES # (AUTO) 0.6 X10'3 (0-0.9); MONOCYTES % (AUTO) 6.1 % (2-12); NEUTROPHILS # (AUTO) 5.5 X10'3 (1.8-7.7); NEUTROPHILS % (AUTO) 55.5 % (42-75); RED BLOOD COUNT 4.22 X10'6 (4.20-5.60); RED CELL DISTRIBUTION WIDTH 15.2 % (11.5-14.5)
[2018-04-29 19:20] LABS: ALANINE AMINOTRANSFERASE 30 U/L (12-78); ALBUMIN 2.7 G/DL (3.4-5.0); ALBUMIN/GLOBULIN RATIO 0.6 (1.1-1.5); ALKALINE PHOSPHATASE 137 IU/L (46-116); ANION GAP 10 (8-16); ASPARTATE AMINO TRANSFERASE 20 U/L (10-37); BILIRUBIN,TOTAL 0.2 MG/DL (0.1-1.0); BLOOD UREA NITROGEN 6 MG/DL (7-18); BUN/CREATININE RATIO 7.1 (6.6-38.0); CALCIUM 8.7 MG/DL (8.5-10.1); CHLORIDE 101 MMOL/L (99-107); CREATININE 0.84 MG/DL (0.40-0.90); GLUCOSE 113 MG/DL (70-104); POTASSIUM 3.4 MMOL/L (3.5-5.1); SODIUM 138 MMOL/L (135-145); TOTAL CARBON DIOXIDE 27.4 MMOL/L (24-32); TOTAL PROTEIN 7.6 G/DL (6.4-8.2); eGFR 70 ML/MIN
[2018-04-29 19:34] LABS: CLARITY,URINE CLEAR (Clear); COLOR,URINE YELLOW (Yellow); GLUCOSE, URINE NEGATIVE (Neg); KETONES,URINE NEGATIVE (Neg); LEUKOCYTE ESTERASE ,URINE NEGATIVE (Neg); NITRITES, URINE NEGATIVE (Neg); OCCULT BLOOD,URINE NEGATIVE (Neg); PH,URINE 8.5 (4.8-8.0); PROTEIN,URINE NEGATIVE (Neg); UROBILINOGEN,URINE 0.2 E.U/dL (0.2-1.0)
[2018-04-29 19:35] LABS: PROTHROMBIN TIME 10.4 SECONDS (9.0-12.0)
[2018-04-29 19:40] LABS: PLATELET COUNT 336 X10'3 (140-440)
[2018-04-29] MEDS ORDERED: ondansetron/PF 4mg/2ml inj IV ONE (19:40)
[2018-04-29] MEDS ORDERED: HYDROmorphone 1 mg/ml syringe IV ONE (19:40)
[2018-04-29 19:42] LABS: UA COLLECTION TYPE CLN CATCH MIDSTREAM
[2018-04-29 20:07] LABS: LARGE PLATELETS FEW; PLATELET ESTIMATE NORMAL
[2018-04-29] MEDS ORDERED: MORP30CA16 PO (20:14)
[2018-04-29] MEDS ORDERED: MORP10CA11 PO (20:14)
[2018-04-29] MEDS ORDERED: EST1T PO (20:14)
[2018-04-29] MEDS ORDERED: TRAZ300T2 PO (20:14)
[2018-04-29] MEDS ORDERED: DOCU-28 PO (20:14)
[2018-04-29] MEDS ORDERED: GABA-530 PO (20:14)
[2018-04-29] MEDS ORDERED: ONDA4TAB9 SL (20:14)
[2018-04-29] MEDS ORDERED: DIPH25CA83 PO (20:14)
[2018-04-29] MEDS ORDERED: temazepam 15mg capsule PO PRN (21:00)
[2018-04-29] MEDS ORDERED: mag hydrox/Alum hydrox/simeth 30ml oral suspension PO PRN (21:30)
[2018-04-29] MEDS ORDERED: morphine 10 MG/5 ML UD oral solution PO PRN (21:30)
[2018-04-29] MEDS ORDERED: acetaminophen 325mg tablet PO PRN ×2 (21:30)
[2018-04-29] MEDS ORDERED: magnesium hydroxide 30ml (MOM) UD suspension PO PRN (21:30)
[2018-04-29 22:30] VITALS: BP 89/52
[2018-04-29] MEDS: normal saline 1000ml 1,000 ML IV SCH (22:41)
[2018-04-29 22:50] VITALS: BP 95/56
[2018-04-30] MEDS: morphine 4 MG/ML inj SYRINge IV PRN ×6 (00:32→22:35)
[2018-04-30 05:24] LABS: BASOPHILS # (AUTO) 0.1 X10'3 (0-0.2); BASOPHILS % (AUTO) 0.6 % (0-1); EOSINOPHILS # (AUTO) 0.3 X10'3 (0-0.9); EOSINOPHILS % (AUTO) 3.1 % (0-6); HEMATOCRIT 30.7 % (35.0-45.0); HEMOGLOBIN 9.8 g/dl (12.0-16.0); LYMPHOCYTES # (AUTO) 3.2 X10'3 (1.1-4.8); LYMPHOCYTES % (AUTO) 39.1 % (21-51); MEAN CORPUSCULAR HEMOGLOBIN 26.9 PG (27.0-31.0); MEAN CORPUSCULAR HGB CONC 31.9 % (33.0-36.5); MEAN CORPUSCULAR VOLUME 84.1 FL (78-98); MEAN PLATELET VOLUME 11.8 FL (7.4-10.4); MONOCYTES # (AUTO) 0.6 X10'3 (0-0.9); MONOCYTES % (AUTO) 7.7 % (2-12); NEUTROPHILS # (AUTO) 4.1 X10'3 (1.8-7.7); NEUTROPHILS % (AUTO) 49.5 % (42-75); PLATELET COUNT 259 X10'3 (140-440); RED BLOOD COUNT 3.66 X10'6 (4.20-5.60); RED CELL DISTRIBUTION WIDTH 14.9 % (11.5-14.5); WHITE BLOOD COUNT 8.3 X10'3 (4.5-11.0)
[2018-04-30 05:43] LABS: ALBUMIN 2.3 G/DL (3.4-5.0); ANION GAP 9 (8-16); BLOOD UREA NITROGEN 5 MG/DL (7-18); BUN/CREATININE RATIO 7.1 (6.6-38.0); CALCIUM 8.4 MG/DL (8.5-10.1); CHLORIDE 104 MMOL/L (99-107); GLUCOSE 97 MG/DL (70-104); POTASSIUM 3.7 MMOL/L (3.5-5.1); SODIUM 139 MMOL/L (135-145); TOTAL CARBON DIOXIDE 25.6 MMOL/L (24-32); eGFR 87 ML/MIN
[2018-04-30 06:37] LABS: LARGE PLATELETS FEW; PLATELET ESTIMATE NORMAL
[2018-04-30 07:55] VITALS: BP 84/46
[2018-04-30] MEDS: enoxaparin 40mg/0.4ml syringe SUBCUT SCH (08:00)
[2018-04-30] MEDS: normal saline 1000ml 1,000 ML IV SCH ×3 (08:43→20:26)
[2018-04-30] MEDS: gabapentin 100mg capsule PO SCH ×2 (08:44→20:25)
[2018-04-30] MEDS: estradiol 1mg tablet PO SCH (08:44)
[2018-04-30] MEDS: morphine ER 30mg tablet PO SCH ×2 (08:44→20:25)
[2018-04-30] MEDS: docusate sod 100mg capsule PO SCH ×2 (08:44→20:25)
[2018-04-30 12:00] VITALS: BP 102/58
[2018-04-30] MEDS ORDERED: OMEP20TA23 PO (13:55)
[2018-04-30] MEDS ORDERED: SERT100T PO (13:55)
[2018-04-30] MEDS ORDERED: TRAZ-219 PO (13:55)
[2018-04-30] MEDS ORDERED: CYAN10007 (13:55)
[2018-04-30] MEDS ORDERED: GABA-530 PO (13:55)
[2018-04-30 18:00] VITALS: BP 107/68
[2018-04-30] MEDS: traZODone 150mg tablet PO SCH (20:26)
[2018-04-30] MEDS: diphenhydrAMINE 25mg capsule PO SCH (20:26)
[2018-05-01] VITALS: BP 119/67
[2018-05-01] MEDS: morphine 4 MG/ML inj SYRINge IV PRN ×5 (02:36→19:27)
[2018-05-01] MEDS: normal saline 1000ml 1,000 ML IV SCH ×2 (04:35→17:15)
[2018-05-01 05:04] LABS: BASOPHILS % (AUTO) 0.6 % (0-1); EOSINOPHILS # (AUTO) 0.2 X10'3 (0-0.9); EOSINOPHILS % (AUTO) 3.1 % (0-6); HEMATOCRIT 31.3 % (35.0-45.0); LYMPHOCYTES # (AUTO) 3.2 X10'3 (1.1-4.8); LYMPHOCYTES % (AUTO) 45.3 % (21-51); MEAN CORPUSCULAR HEMOGLOBIN 26.9 PG (27.0-31.0); MEAN CORPUSCULAR HGB CONC 31.8 % (33.0-36.5); MEAN CORPUSCULAR VOLUME 84.4 FL (78-98); MEAN PLATELET VOLUME 10.9 FL (7.4-10.4); MONOCYTES # (AUTO) 0.5 X10'3 (0-0.9); MONOCYTES % (AUTO) 7.2 % (2-12); NEUTROPHILS # (AUTO) 3.1 X10'3 (1.8-7.7); NEUTROPHILS % (AUTO) 43.8 % (42-75); PLATELET COUNT 257 X10'3 (140-440); RED BLOOD COUNT 3.71 X10'6 (4.20-5.60); RED CELL DISTRIBUTION WIDTH 15.3 % (11.5-14.5); WHITE BLOOD COUNT 7.2 X10'3 (4.5-11.0)
[2018-05-01 05:18] LABS: ALBUMIN 2.1 G/DL (3.4-5.0); ANION GAP 6 (8-16); BLOOD UREA NITROGEN 3 MG/DL (7-18); BUN/CREATININE RATIO 4.5 (6.6-38.0); CALCIUM 8.4 MG/DL (8.5-10.1); CHLORIDE 109 MMOL/L (99-107); CREATININE 0.66 MG/DL (0.40-0.90); GLUCOSE 85 MG/DL (70-104); POTASSIUM 4.2 MMOL/L (3.5-5.1); SODIUM 141 MMOL/L (135-145); eGFR > 90 ML/MIN
[2018-05-01 07:30] VITALS: BP 117/64
[2018-05-01] MEDS: enoxaparin 40mg/0.4ml syringe SUBCUT SCH (08:00)
[2018-05-01] MEDS: morphine ER 30mg tablet PO SCH ×2 (08:49→20:28)
[2018-05-01] MEDS: docusate sod 100mg capsule PO SCH ×2 (08:49→20:00)
[2018-05-01] MEDS: gabapentin 100mg capsule PO SCH ×2 (08:49→20:29)
[2018-05-01] MEDS: diatr meglu/diatrizoate 30ml oral sol.-(3 dose) bottle PO SCH ×3 (08:50→15:58)
[2018-05-01] MEDS: estradiol 1mg tablet PO SCH (08:53)
[2018-05-01] MEDS: ondansetron/PF 4mg/2ml inj IV PRN ×2 (09:44→15:58)
[2018-05-01 11:54] VITALS: BP 122/65
[2018-05-01] MEDS ORDERED: diatrozoate meglu/diatrozoate sod (37% iodine) 120ML oral solution ONE (16:04)
[2018-05-01 18:26] LABS: % IRON SATURATION 7 % (11-46); IRON 18 UG/DL (49-151); TOTAL IRON BINDING CAPACITY 254 UG/DL (259-388)
[2018-05-01 20:00] VITALS: BP 127/68
[2018-05-01] MEDS: diphenhydrAMINE 25mg capsule PO SCH (20:29)
[2018-05-01] MEDS: traZODone 150mg tablet PO SCH (20:29)
[2018-05-01] MEDS: morphine 10mg/ml inj. IV PRN (23:16)
[2018-05-02] VITALS (18 sets, daily range): BP systolic 118–178; BP diastolic 52–87
[2018-05-02] MEDS: normal saline 1000ml 1,000 ML IV SCH ×3 (02:31→20:53)
[2018-05-02] MEDS: morphine 10mg/ml inj. IV PRN ×4 (03:32→16:52)
[2018-05-02 05:29] LABS: BASOPHILS # (AUTO) 0.2 X10'3 (0-0.2); BASOPHILS % (AUTO) 2.1 % (0-1); EOSINOPHILS # (AUTO) 0.2 X10'3 (0-0.9); EOSINOPHILS % (AUTO) 2.7 % (0-6); HEMATOCRIT 30.9 % (35.0-45.0); LYMPHOCYTES # (AUTO) 3.1 X10'3 (1.1-4.8); LYMPHOCYTES % (AUTO) 41.1 % (21-51); MEAN CORPUSCULAR HEMOGLOBIN 26.8 PG (27.0-31.0); MEAN CORPUSCULAR HGB CONC 32.3 % (33.0-36.5); MONOCYTES # (AUTO) 0.5 X10'3 (0-0.9); MONOCYTES % (AUTO) 6.9 % (2-12); NEUTROPHILS # (AUTO) 3.5 X10'3 (1.8-7.7); NEUTROPHILS % (AUTO) 47.2 % (42-75); PLATELET COUNT 267 X10'3 (140-440); RED BLOOD COUNT 3.73 X10'6 (4.20-5.60); RED CELL DISTRIBUTION WIDTH 15.2 % (11.5-14.5); WHITE BLOOD COUNT 7.4 X10'3 (4.5-11.0)
[2018-05-02 05:41] LABS: ALBUMIN 2.2 G/DL (3.4-5.0); ANION GAP 9 (8-16); BLOOD UREA NITROGEN 2 MG/DL (7-18); BUN/CREATININE RATIO 3.2 (6.6-38.0); CALCIUM 8.4 MG/DL (8.5-10.1); CHLORIDE 107 MMOL/L (99-107); CREATININE 0.63 MG/DL (0.40-0.90); GLUCOSE 82 MG/DL (70-104); POTASSIUM 3.6 MMOL/L (3.5-5.1); SODIUM 140 MMOL/L (135-145); TOTAL CARBON DIOXIDE 23.6 MMOL/L (24-32); eGFR > 90 ML/MIN
[2018-05-02] MEDS: enoxaparin 40mg/0.4ml syringe SUBCUT SCH (06:29)
[2018-05-02 06:43] LABS: LARGE PLATELETS FEW; PLATELET ESTIMATE NORMAL
[2018-05-02] MEDS: ondansetron/PF 4mg/2ml inj IV PRN ×3 (07:40→20:52)
[2018-05-02] MEDS: docusate sod 100mg capsule PO SCH ×2 (07:45→20:00)
[2018-05-02] MEDS: estradiol 1mg tablet PO SCH (07:47)
[2018-05-02] MEDS: morphine ER 30mg tablet PO SCH (07:47)
[2018-05-02] MEDS: gabapentin 100mg capsule PO SCH ×2 (07:47→20:00)
[2018-05-02 16:46] LABS: ALBUMIN 2.6 G/DL (3.4-5.0); ALBUMIN/GLOBULIN RATIO 0.5 (1.1-1.5); ALKALINE PHOSPHATASE 126 IU/L (46-116); BLOOD UREA NITROGEN 2 MG/DL (7-18); BUN/CREATININE RATIO 2.9 (6.6-38.0); CALCIUM 8.6 MG/DL (8.5-10.1); CHLORIDE 102 MMOL/L (99-107); CREATININE 0.68 MG/DL (0.40-0.90); PRE OP ALT 28 U/L (30-65); PRE OP ANION GAP 11 (8-16); PRE OP AST 31 U/L (10-37); PRE OP BILIRUB, TOTAL 0.3 MG/DL (0.0-1.0); PRE OP GLUCOSE 83 MG/DL (70-104); PRE OP POTASSIUM 3.5 MMOL/L (3.4-5.1); PRE OP SODIUM 137 MMOL/L (135-145); TOTAL CARBON DIOXIDE 23.7 MMOL/L (24-32); TOTAL PROTEIN 7.4 G/DL (6.4-8.2); eGFR 90 ML/MIN
[2018-05-02 16:49] LABS: PRE OP INR 1.1 INR; PRE OP PROTIME 11.4 SECONDS (9.0-12.0)
[2018-05-02] MEDS ORDERED: ringers solution, lacted 1,000 ML IV SCH (18:28)
[2018-05-02] MEDS ORDERED: ondansetron/PF 4mg/2ml inj IV PRN (18:30)
[2018-05-02] MEDS ORDERED: fentaNYL/PF 50MCG/1 ML 2ML syringe IV PRN (18:30)
[2018-05-02] MEDS ORDERED: HYDROmorphone inj. 0.5 MG/0.5 ML DISP.SYRIN IV PRN ×2 (18:30)
[2018-05-02] MEDS ORDERED: meperidine/PF 25mg/ml syringe IV PRN (18:30)
[2018-05-02] MEDS ORDERED: sevoflurane 250ml liquid IH ONE (18:31)
[2018-05-02] MEDS ORDERED: midazolam 2 mg/2 ml injection ONE (18:33)
[2018-05-02] MEDS ORDERED: fentaNYL /PF 50mcg/ml 5ml ampule ONE (18:33)
[2018-05-02] MEDS ORDERED: propofol inj 20 ML IV ONE (18:34)
[2018-05-02] MEDS ORDERED: rocuronium 10mg/ml inj IV ONE (19:04)
[2018-05-02] MEDS ORDERED: dexamethasone sod phosphate 4mg/ml inj. ONE (19:04)
[2018-05-02] MEDS ORDERED: neostigmine methylsulfate 1 MG/ML 10ml vial ONE (19:25)
[2018-05-02] MEDS ORDERED: glycopyrrolate 0.2mg/ml inj ONE (19:25)
[2018-05-02] MEDS ORDERED: ondansetron/PF 4mg/2ml inj ONE (19:25)
[2018-05-02] MEDS: fentaNYL/PF 50MCG/1 ML 2ML syringe IV PRN ×4 (19:35→19:59)
[2018-05-02] MEDS: traZODone 150mg tablet PO SCH (21:00)
[2018-05-02] MEDS: famotidine 20mg tablet PO SCH (21:00)
[2018-05-02] MEDS: diphenhydrAMINE 25mg capsule PO SCH (21:00)
[2018-05-02] MEDS ORDERED: naloxone 0.4 mg/ml inj IV PRN (21:30)
[2018-05-02] MEDS: HYDROmorphone/NS 1 mg/ml CADD 50 ML IV SCH ×2 (22:12→23:00)
[2018-05-03 00:15] VITALS: BP 156/99
[2018-05-03] MEDS: normal saline 1000ml 1,000 ML IV SCH ×3 (00:32→20:37)
[2018-05-03] MEDS: metoclopramide 5 mg/ml inj IV PRN ×2 (00:33→10:59)
[2018-05-03] MEDS: HYDROmorphone/NS 1 mg/ml CADD 50 ML IV SCH ×12 (01:00→23:00)
[2018-05-03 06:01] LABS: BASOPHILS # (AUTO) 0.1 X10'3 (0-0.2); BASOPHILS % (AUTO) 0.6 % (0-1); EOSINOPHILS # (AUTO) 0.1 X10'3 (0-0.9); EOSINOPHILS % (AUTO) 0.9 % (0-6); HEMATOCRIT 34.1 % (35.0-45.0); HEMOGLOBIN 11.1 g/dl (12.0-16.0); LYMPHOCYTES % (AUTO) 6.4 % (21-51); MEAN CORPUSCULAR HEMOGLOBIN 26.8 PG (27.0-31.0); MEAN CORPUSCULAR HGB CONC 32.6 % (33.0-36.5); MEAN CORPUSCULAR VOLUME 82.2 FL (78-98); MEAN PLATELET VOLUME 11.3 FL (7.4-10.4); MONOCYTES # (AUTO) 0.2 X10'3 (0-0.9); MONOCYTES % (AUTO) 1.3 % (2-12); NEUTROPHILS # (AUTO) 13.6 X10'3 (1.8-7.7); NEUTROPHILS % (AUTO) 90.8 % (42-75); PLATELET COUNT 335 X10'3 (140-440); RED BLOOD COUNT 4.15 X10'6 (4.20-5.60)
[2018-05-03 06:15] LABS: ALBUMIN 2.4 G/DL (3.4-5.0); ANION GAP 14 (8-16); BLOOD UREA NITROGEN 3 MG/DL (7-18); BUN/CREATININE RATIO 4.5 (6.6-38.0); CALCIUM 8.9 MG/DL (8.5-10.1); CHLORIDE 102 MMOL/L (99-107); CREATININE 0.66 MG/DL (0.40-0.90); GLUCOSE 126 MG/DL (70-104); SODIUM 136 MMOL/L (135-145); TOTAL CARBON DIOXIDE 19.6 MMOL/L (24-32); eGFR > 90 ML/MIN
[2018-05-03 07:00] VITALS: BP 137/84
[2018-05-03] MEDS: ondansetron/PF 4mg/2ml inj IV PRN (07:41)
[2018-05-03] MEDS: docusate sod 100mg capsule PO SCH ×2 (08:06→19:29)
[2018-05-03] MEDS: gabapentin 100mg capsule PO SCH ×2 (08:06→20:38)
[2018-05-03] MEDS: estradiol 1mg tablet PO SCH (08:06)
[2018-05-03 08:58] LABS: LARGE PLATELETS FEW; PLATELET ESTIMATE NORMAL
[2018-05-03 11:00] VITALS: BP 142/65
[2018-05-03 18:00] VITALS: BP 149/77
[2018-05-03] MEDS: NUT.TX.IMPAIRED DIGEST FXN (Ensure Clear) 237 ML PO SCH (18:00)
[2018-05-03] MEDS: diphenhydrAMINE 25mg capsule PO SCH (20:38)
[2018-05-03] MEDS: traZODone 150mg tablet PO SCH (20:38)
[2018-05-03] MEDS: famotidine 20mg tablet PO SCH (20:38)
[2018-05-04] VITALS: BP 143/73
[2018-05-04] MEDS: HYDROmorphone/NS 1 mg/ml CADD 50 ML IV SCH ×12 (01:00→23:00)
[2018-05-04 05:57] LABS: BASOPHILS # (AUTO) 0.1 X10'3 (0-0.2); BASOPHILS % (AUTO) 0.5 % (0-1); EOSINOPHILS # (AUTO) 0.1 X10'3 (0-0.9); EOSINOPHILS % (AUTO) 1.2 % (0-6); HEMOGLOBIN 10.6 g/dl (12.0-16.0); LYMPHOCYTES # (AUTO) 3.4 X10'3 (1.1-4.8); LYMPHOCYTES % (AUTO) 29.6 % (21-51); MEAN CORPUSCULAR HEMOGLOBIN 26.9 PG (27.0-31.0); MEAN CORPUSCULAR HGB CONC 32.3 % (33.0-36.5); MEAN CORPUSCULAR VOLUME 83.3 FL (78-98); MEAN PLATELET VOLUME 11.5 FL (7.4-10.4); MONOCYTES # (AUTO) 0.8 X10'3 (0-0.9); MONOCYTES % (AUTO) 6.6 % (2-12); NEUTROPHILS # (AUTO) 7.1 X10'3 (1.8-7.7); NEUTROPHILS % (AUTO) 62.1 % (42-75); PLATELET COUNT 319 X10'3 (140-440); RED BLOOD COUNT 3.96 X10'6 (4.20-5.60); RED CELL DISTRIBUTION WIDTH 15.3 % (11.5-14.5); WHITE BLOOD COUNT 11.4 X10'3 (4.5-11.0)
[2018-05-04] MEDS: normal saline 1000ml 1,000 ML IV SCH ×2 (05:58→17:36)
[2018-05-04 06:01] LABS: ALBUMIN 2.4 G/DL (3.4-5.0); ANION GAP 12 (8-16); BLOOD UREA NITROGEN 3 MG/DL (7-18); BUN/CREATININE RATIO 4.6 (6.6-38.0); CALCIUM 8.9 MG/DL (8.5-10.1); CHLORIDE 105 MMOL/L (99-107); CREATININE 0.65 MG/DL (0.40-0.90); GLUCOSE 92 MG/DL (70-104); POTASSIUM 3.2 MMOL/L (3.5-5.1); SODIUM 142 MMOL/L (135-145); TOTAL CARBON DIOXIDE 25.5 MMOL/L (24-32); eGFR > 90 ML/MIN
[2018-05-04 07:08] LABS: ANISOCYTOSIS 1+; LARGE PLATELETS FEW; MICROCYTOSIS 1+; PLATELET ESTIMATE NORMAL
[2018-05-04 07:12] VITALS: BP 139/58
[2018-05-04] MEDS: NUT.TX.IMPAIRED DIGEST FXN (Ensure Clear) 237 ML PO SCH ×3 (08:38→18:00)
[2018-05-04] MEDS: docusate sod 100mg capsule PO SCH ×2 (08:39→20:31)
[2018-05-04] MEDS: estradiol 1mg tablet PO SCH (08:39)
[2018-05-04] MEDS: gabapentin 100mg capsule PO SCH ×2 (08:40→20:32)
[2018-05-04] MEDS: CADD PCA waste documentation MC PRN (10:13)
[2018-05-04 11:30] VITALS: BP 130/75
[2018-05-04] MEDS ORDERED: magnesium Cl slow-release 64mg tablet PO PRN (11:55)
[2018-05-04] MEDS ORDERED: potassium Cl 20 mEq SR tablet PO PRN (11:55)
[2018-05-04] MEDS ORDERED: potassium Cl 40MEQ/NS 500ml 500 ML IV PRN ×2 (11:55)
[2018-05-04] MEDS ORDERED: magnesium 1gm/100ml D5W IVPB 100 ML IV PRN (11:55)
[2018-05-04] MEDS ORDERED: magnesium 4gm in 100ml NS 100 ML IV PRN (11:55)
[2018-05-04] MEDS: potassium Cl 20 mEq SR tablet PO PRN ×3 (13:03→21:44)
[2018-05-04 18:00] VITALS: BP 128/62
[2018-05-04] MEDS: diphenhydrAMINE 25mg capsule PO SCH (20:31)
[2018-05-04] MEDS: traZODone 150mg tablet PO SCH (20:31)
[2018-05-04] MEDS: famotidine 20mg tablet PO SCH (20:31)
[2018-05-05] VITALS: BP 126/68
[2018-05-05] MEDS: HYDROmorphone/NS 1 mg/ml CADD 50 ML IV SCH ×7 (01:00→13:00)
[2018-05-05] MEDS: normal saline 1000ml 1,000 ML IV SCH (03:26)
[2018-05-05 06:04] LABS: MAGNESIUM 1.5 MG/DL (1.5-2.4); POTASSIUM 3.8 MMOL/L (3.5-5.1)
[2018-05-05 07:20] VITALS: BP 143/72
[2018-05-05] MEDS: estradiol 1mg tablet PO SCH (08:58)
[2018-05-05] MEDS: gabapentin 100mg capsule PO SCH ×2 (08:58→20:08)
[2018-05-05] MEDS: NUT.TX.IMPAIRED DIGEST FXN (Ensure Clear) 237 ML PO SCH ×3 (08:58→18:00)
[2018-05-05] MEDS: docusate sod 100mg capsule PO SCH ×2 (08:58→20:00)
[2018-05-05 13:17] VITALS: BP 125/59
[2018-05-05] MEDS: CADD PCA waste documentation MC PRN (15:20)
[2018-05-05] MEDS: HYDROmorphone 2mg tablet PO PRN ×2 (15:47→20:06)
[2018-05-05] MEDS ORDERED: HYDROmorphone 2mg tablet PO STA (16:54)
[2018-05-05 19:05] VITALS: BP 157/73
[2018-05-05] MEDS: diphenhydrAMINE 25mg capsule PO SCH (20:08)
[2018-05-05] MEDS: traZODone 150mg tablet PO SCH (20:08)
[2018-05-05] MEDS: famotidine 20mg tablet PO SCH (20:09)
[2018-05-06] VITALS: BP 151/79
[2018-05-06] MEDS: HYDROmorphone 2mg tablet PO PRN ×3 (02:16→10:10)
[2018-05-06] MEDS: normal saline 1000ml 1,000 ML IV SCH (03:26)
[2018-05-06 05:14] LABS: BASOPHILS # (AUTO) 0.1 X10'3 (0-0.2); BASOPHILS % (AUTO) 0.7 % (0-1); EOSINOPHILS # (AUTO) 0.1 X10'3 (0-0.9); EOSINOPHILS % (AUTO) 0.6 % (0-6); HEMATOCRIT 31.8 % (35.0-45.0); HEMOGLOBIN 10.4 g/dl (12.0-16.0); LYMPHOCYTES # (AUTO) 1.9 X10'3 (1.1-4.8); LYMPHOCYTES % (AUTO) 20.7 % (21-51); MEAN CORPUSCULAR HGB CONC 32.8 % (33.0-36.5); MEAN CORPUSCULAR VOLUME 82.4 FL (78-98); MEAN PLATELET VOLUME 11.1 FL (7.4-10.4); MONOCYTES # (AUTO) 0.5 X10'3 (0-0.9); NEUTROPHILS # (AUTO) 6.7 X10'3 (1.8-7.7); PLATELET COUNT 314 X10'3 (140-440); RED BLOOD COUNT 3.86 X10'6 (4.20-5.60); RED CELL DISTRIBUTION WIDTH 15.3 % (11.5-14.5); WHITE BLOOD COUNT 9.1 X10'3 (4.5-11.0)
[2018-05-06 06:18] LABS: ALANINE AMINOTRANSFERASE 22 U/L (12-78); ALBUMIN 2.4 G/DL (3.4-5.0); ALBUMIN/GLOBULIN RATIO 0.6 (1.1-1.5); ALKALINE PHOSPHATASE 89 IU/L (46-116); ANION GAP 8 (8-16); ASPARTATE AMINO TRANSFERASE 19 U/L (10-37); BILIRUBIN,TOTAL 0.2 MG/DL (0.1-1.0); BLOOD UREA NITROGEN 5 MG/DL (7-18); BUN/CREATININE RATIO 8.9 (6.6-38.0); CALCIUM 8.6 MG/DL (8.5-10.1); CHLORIDE 106 MMOL/L (99-107); CREATININE 0.56 MG/DL (0.40-0.90); GLUCOSE 106 MG/DL (70-104); MAGNESIUM 1.7 MG/DL (1.5-2.4); POTASSIUM 3.4 MMOL/L (3.5-5.1); SODIUM 140 MMOL/L (135-145); TOTAL CARBON DIOXIDE 25.6 MMOL/L (24-32); TOTAL PROTEIN 6.7 G/DL (6.4-8.2); eGFR > 90 ML/MIN
[2018-05-06] MEDS: docusate sod 100mg capsule PO SCH ×2 (08:00→20:00)
[2018-05-06] MEDS: NUT.TX.IMPAIRED DIGEST FXN (Ensure Clear) 237 ML PO SCH ×3 (08:00→18:00)
[2018-05-06 08:08] VITALS: BP 168/86
[2018-05-06] MEDS: gabapentin 100mg capsule PO SCH ×2 (08:54→20:21)
[2018-05-06] MEDS: estradiol 1mg tablet PO SCH (08:54)
[2018-05-06] MEDS ORDERED: LORazepam 1 MG tablet PO PRN (10:00)
[2018-05-06] MEDS: ondansetron 4mg rapidly disintigrating tab PO PRN ×2 (10:09→20:22)
[2018-05-06] MEDS ORDERED: HYDROmorphone 1 mg/ml syringe IM ONE (10:10)
[2018-05-06] MEDS ORDERED: HYDROmorphone 1 mg/ml syringe IV PRN (10:55)
[2018-05-06 11:41] VITALS: BP 154/83
[2018-05-06] MEDS: oxyCODONE/APAP 10/325mg tablet PO SCH ×4 (12:00→20:25)
[2018-05-06] MEDS: LORazepam 1 MG tablet PO PRN ×3 (12:17→22:41)
[2018-05-06] MEDS: potassium Cl 20 mEq SR tablet PO PRN (17:36)
[2018-05-06 19:00] VITALS: BP 173/90
[2018-05-06] MEDS: famotidine 20mg tablet PO SCH (20:22)
[2018-05-06] MEDS: diphenhydrAMINE 25mg capsule PO SCH (20:22)
[2018-05-06] MEDS: traZODone 150mg tablet PO SCH (20:23)
[2018-05-07] VITALS: BP 117/64
[2018-05-07] MEDS: oxyCODONE/APAP 10/325mg tablet PO SCH ×4 (00:45→12:50)
[2018-05-07 05:17] LABS: BASOPHILS # (AUTO) 0.1 X10'3 (0-0.2); BASOPHILS % (AUTO) 1.3 % (0-1); EOSINOPHILS # (AUTO) 0.1 X10'3 (0-0.9); EOSINOPHILS % (AUTO) 0.7 % (0-6); HEMATOCRIT 31.9 % (35.0-45.0); HEMOGLOBIN 10.3 g/dl (12.0-16.0); LYMPHOCYTES # (AUTO) 2.3 X10'3 (1.1-4.8); LYMPHOCYTES % (AUTO) 26.6 % (21-51); MEAN CORPUSCULAR HEMOGLOBIN 26.8 PG (27.0-31.0); MEAN CORPUSCULAR HGB CONC 32.4 % (33.0-36.5); MEAN CORPUSCULAR VOLUME 82.6 FL (78-98); MEAN PLATELET VOLUME 10.7 FL (7.4-10.4); MONOCYTES # (AUTO) 0.6 X10'3 (0-0.9); MONOCYTES % (AUTO) 6.8 % (2-12); NEUTROPHILS # (AUTO) 5.7 X10'3 (1.8-7.7); NEUTROPHILS % (AUTO) 64.6 % (42-75); PLATELET COUNT 347 X10'3 (140-440); RED BLOOD COUNT 3.86 X10'6 (4.20-5.60); RED CELL DISTRIBUTION WIDTH 15.6 % (11.5-14.5); WHITE BLOOD COUNT 8.8 X10'3 (4.5-11.0)
[2018-05-07 05:38] LABS: ALANINE AMINOTRANSFERASE 28 U/L (12-78); ALBUMIN 2.3 G/DL (3.4-5.0); ALBUMIN/GLOBULIN RATIO 0.5 (1.1-1.5); ALKALINE PHOSPHATASE 96 IU/L (46-116); ANION GAP 9 (8-16); ASPARTATE AMINO TRANSFERASE 19 U/L (10-37); BILIRUBIN,TOTAL 0.2 MG/DL (0.1-1.0); BLOOD UREA NITROGEN 10 MG/DL (7-18); BUN/CREATININE RATIO 13.9 (6.6-38.0); CHLORIDE 106 MMOL/L (99-107); CREATININE 0.72 MG/DL (0.40-0.90); GLUCOSE 107 MG/DL (70-104); MAGNESIUM 1.9 MG/DL (1.5-2.4); POTASSIUM 4.1 MMOL/L (3.5-5.1); SODIUM 141 MMOL/L (135-145); TOTAL CARBON DIOXIDE 26.4 MMOL/L (24-32); TOTAL PROTEIN 6.8 G/DL (6.4-8.2); eGFR 84 ML/MIN
[2018-05-07 05:44] LABS: PLATELET ESTIMATE NORMAL
[2018-05-07 05:45] LABS: LARGE PLATELETS FEW
[2018-05-07 07:00] VITALS: BP 116/68
[2018-05-07] MEDS: NUT.TX.IMPAIRED DIGEST FXN (Ensure Clear) 237 ML PO SCH ×2 (08:33→13:02)
[2018-05-07] MEDS: docusate sod 100mg capsule PO SCH (08:33)
[2018-05-07] MEDS: estradiol 1mg tablet PO SCH (08:33)
[2018-05-07] MEDS: gabapentin 100mg capsule PO SCH (08:34)
[2018-05-07] MEDS: ondansetron 4mg rapidly disintigrating tab PO PRN (08:37)
[2018-05-07] MEDS: LORazepam 1 MG tablet PO PRN (11:02)
[2018-05-07] MEDS ORDERED: PER10325T PO (11:04)
[2018-05-07] MEDS ORDERED: ATI1T PO (11:04)
[2018-05-07 11:30] VITALS: BP 129/73
== END 2018-05-07 14:00 | disposition home health service (06) | DRG 231 ==
LOC: ER 18:10 → ED HOLD 21:26 → SUR 3N 22:30 → PACU 05-02 18:08 → SUR 3N 05-02 21:00
PROVIDERS: ADMIT Hospitalist; ATTEND Hospitalist
PROC: 0D1K0Z4 Bypass Ascending Colon to Cutaneous, Open Approach (ICD-10-PCS; principal; 2018-05-03)
DX: K63.2 Fistula of intestine (principal); E43 Unspecified severe protein-calorie malnutrition; D63.8 Anemia in other chronic diseases classified elsewhere; D72.829 Elevated white blood cell count, unspecified; Z68.23 Body mass index [BMI] 23.0-23.9, adult; E61.1 Iron deficiency; E78.00 Pure hypercholesterolemia, unspecified; E86.0 Dehydration; E87.6 Hypokalemia; F41.1 Generalized anxiety disorder; G89.4 Chronic pain syndrome; L25.9 Unspecified contact dermatitis, unspecified cause; F32.9 Major depressive disorder, single episode, unspecified; G43.909 Migraine, unspecified, not intractable, without status migrainosus; I10 Essential (primary) hypertension; J45.909 Unspecified asthma, uncomplicated; Z85.3 Personal history of malignant neoplasm of breast; Z88.6 Allergy status to analgesic agent; Z88.8 Allergy status to other drugs, medicaments and biological substances; Z91.041 Radiographic dye allergy status; Z91.040 Latex allergy status; Z85.43 Personal history of malignant neoplasm of ovary; Z87.442 Personal history of urinary calculi; Z90.13 Acquired absence of bilateral breasts and nipples; Z90.49 Acquired absence of other specified parts of digestive tract; Z90.710 Acquired absence of both cervix and uterus; Z98.82 Breast implant status; Z98.891 History of uterine scar from previous surgery; Z82.49 Family history of ischemic heart disease and other diseases of the circulatory system
CPT/HCPCS: 36415; 74176; 80048; 80053; 81003; 83540; 83550; 83735; 84132; 85025; 85610; 85730; 87070; 93005; 96374; 96375; 99285; A4421; A6449; A7000; G0378; J1100; J1170; J2250; J2270; J2405; J2704; J2710; J2765; J3010; J3490; J7030; J7120; Q0163; Q2037; Q9963

== ENCOUNTER 2018-06-14 08:28 | Outpatient (CLI) | payer MEDICAID ==
[~2018-06-14 08:28] MED LIST changes: -ALBU8HFA PO; +ATI1T PO; -BECL7.3A INH; +CYAN10007; -CYAN10007 IM; -DIPH-423 PO; +DIPH25CA83 PO; -DOCU-267 PO; +DOCU-28 PO; +EST1T PO; -ESTR2TAB PO; +GABA-530 PO; -GABA600T2 OGT; -MORP60TA66 PO; +OMEP20TA23 PO; +ONDA4TAB9 SL; -ONDA8TAB13; -OXYC15TA88 PO; +PER10325T PO; +SERT100T PO; -SERT50TA10 PO; +TRAZ300T2 PO; -ceFOXitin 2 GM ADDvantage bag 100 ML IV ONE; -famotidine 20mg tablet PO ONE; -ringers solution, lacted 1,000 ML IV SCH
[2018-06-14] MEDS ORDERED: BARIUM SULFATE/METHYLCELLULOSE 600 ML SUSPENSION BOTTLE**DONT ENTER PO ONE ×2 (09:17→09:28)
[2018-06-26] MEDS ORDERED: POTA10CA44 PO (10:01)
[2018-06-26] MEDS ORDERED: LORA1TAB PO (10:01)
[2018-06-26] MEDS ORDERED: CHOL100044 PO (10:01)
[2018-06-26] MEDS ORDERED: ALBU18HF2 INH (10:01)
[2018-06-26] MEDS ORDERED: TRAZ-219 PO (12:25)
[2018-06-26] MEDS ORDERED: CYAN10006 IM (12:27)
== END 2018-06-14 23:59 | disposition home or self-care (01) ==
LOC: RAD 08:28
PROVIDERS: ATTEND Surgery
DX: K63.2 Fistula of intestine (principal)
CPT/HCPCS: 74270

== ENCOUNTER 2018-06-27 05:26 | Inpatient (IN) | payer MEDICAID | END 2018-07-06 13:19 | disposition home health service (06) | LOC: PAS IN 05:26 → SUR 3N 12:19 | DX: Z93.3 Colostomy status (principal) ==

== ENCOUNTER 2018-10-18 10:50 | Emergency (ER) | payer MEDICAID ==
[~2018-10-18] VITALS: Ht 149.9 cm; Wt 66.0 kg
[~2018-10-18 10:50] MED LIST changes: +ALBU18HF2 INH; -ATI1T PO; +CHOL100044 PO; +CYAN10006 IM; -CYAN10007; -GABA-530 PO; +LORA1TAB PO; +POTA10CA44 PO; -TRAZ300T2 PO
--- NOTE | 2018-10-18 12:32 | NUR ---
unable to get labs or PIV. PICC line nurse will come and start IV.
[2018-10-18] MEDS ORDERED: HYDROmorphone 1 mg/ml syringe IV ONE (13:25)
[2018-10-18] MEDS ORDERED: ondansetron/PF 4mg/2ml inj IV ONE (13:25)
[2018-10-18 13:29] LABS: BASOPHILS # (AUTO) 0.1 X10'3 (0-0.2); BASOPHILS % (AUTO) 1.2 % (0-1); EOSINOPHILS % (AUTO) 0.5 % (0-6); HEMATOCRIT 29.3 % (35.0-45.0); LYMPHOCYTES # (AUTO) 2.7 X10'3 (1.1-4.8); LYMPHOCYTES % (AUTO) 27.9 % (21-51); MEAN CORPUSCULAR HGB CONC 30.8 g/dL (33.0-36.5); MEAN CORPUSCULAR VOLUME 71.3 FL (78-98); MEAN PLATELET VOLUME 9.4 FL (7.4-10.4); MONOCYTES # (AUTO) 0.7 X10'3 (0-0.9); MONOCYTES % (AUTO) 7.2 % (2-12); NEUTROPHILS % (AUTO) 63.2 % (42-75); PLATELET COUNT 265 X10'3 (140-440); RED CELL DISTRIBUTION WIDTH 17.6 % (11.5-14.5); WHITE BLOOD COUNT 9.5 X10'3 (4.5-11.0)
[2018-10-18 13:43] LABS: ALANINE AMINOTRANSFERASE 17 U/L (12-78); ALBUMIN 3.2 G/DL (3.4-5.0); ALBUMIN/GLOBULIN RATIO 0.7 (1.1-1.5); ALKALINE PHOSPHATASE 87 IU/L (46-116); ANION GAP 10 (8-16); ASPARTATE AMINO TRANSFERASE 18 U/L (10-37); BILIRUBIN,TOTAL 0.1 MG/DL (0.1-1.0); BLOOD UREA NITROGEN 15 MG/DL (7-18); BUN/CREATININE RATIO 16.7 (6.6-38.0); CALCIUM 8.3 MG/DL (8.5-10.1); CHLORIDE 104 MMOL/L (99-107); GLUCOSE 84 MG/DL (70-104); SODIUM 138 MMOL/L (135-145); TOTAL CARBON DIOXIDE 23.8 MMOL/L (24-32); TOTAL PROTEIN 7.6 G/DL (6.4-8.2); eGFR 65 ML/MIN
[2018-10-18 13:46] LABS: POTASSIUM 4.4 MMOL/L (3.5-5.1)
[2018-10-18 13:48] LABS: PARTIAL THROMBOPLASTIN TIME 28 SECONDS (22-32)
[2018-10-18] MEDS ORDERED: HYDROmorphone inj. 0.5 MG/0.5 ML DISP.SYRIN IV ONE (14:05)
[2018-10-18] MEDS ORDERED: TRAM50TA2 PO (14:15)
[2018-10-18 14:37] VITALS: BP 117/76
== END 2018-10-18 15:09 | disposition home or self-care (01) ==
LOC: ER 10:50
DX: R10.32 Left lower quadrant pain (principal); G43.909 Migraine, unspecified, not intractable, without status migrainosus; E78.00 Pure hypercholesterolemia, unspecified; I10 Essential (primary) hypertension; J45.909 Unspecified asthma, uncomplicated; G89.29 Other chronic pain; Z90.710 Acquired absence of both cervix and uterus; Z98.890 Other specified postprocedural states; Z87.442 Personal history of urinary calculi; Z88.6 Allergy status to analgesic agent; Z88.5 Allergy status to narcotic agent; Z88.8 Allergy status to other drugs, medicaments and biological substances; Z79.899 Other long term (current) drug therapy
CPT/HCPCS: 36415; 71045; 74176; 80053; 84145; 85025; 85610; 85730; 96374; 96375; 96376; 99284; J1170; J2405

== ENCOUNTER 2018-10-26 09:30 | Outpatient (CLI) | payer MEDICAID ==
[~2018-10-26 09:30] MED LIST changes: -POTA10CA44 PO
== END 2018-10-26 23:59 | disposition home or self-care (01) ==
LOC: RAD 09:30
PROVIDERS: ATTEND Surgery
DX: R10.31 Right lower quadrant pain (principal)
CPT/HCPCS: 76700

== ENCOUNTER 2019-04-25 09:33 | Outpatient (CLI) | payer MEDICAID | END 2019-04-25 23:59 | disposition home or self-care (01) | LOC: RAD 09:33 | PROVIDERS: ATTEND Surgery | DX: R10.32 Left lower quadrant pain (principal); J45.909 Unspecified asthma, uncomplicated | CPT/HCPCS: 76881 ==

== ENCOUNTER 2019-05-31 10:33 | Outpatient (CLI) | payer MEDICAID | END 2019-05-31 23:59 | disposition home or self-care (01) | LOC: 64 CT 10:33 | PROVIDERS: ATTEND Surgery | DX: N28.89 Other specified disorders of kidney and ureter (principal); J45.909 Unspecified asthma, uncomplicated; Z88.5 Allergy status to narcotic agent; Z88.6 Allergy status to analgesic agent; Z91.040 Latex allergy status; Z88.8 Allergy status to other drugs, medicaments and biological substances | CPT/HCPCS: 74176 ==

== ENCOUNTER 2019-12-30 18:37 | Emergency (ER) | payer MEDICAID ==
[~2019-12-30] VITALS: Ht 149.9 cm; Wt 64.5 kg
[~2019-12-30 18:37] MED LIST changes: -TRAZ-219 PO; +TRAZ-256 PO
[2019-12-30] MEDS ORDERED: diatr meglu/diatrizoate 30ml oral sol.-(3 dose) bottle PO SCH (19:15)
[2019-12-30 19:39] LABS: HEMOGLOBIN 13.8 g/dl (12.0-16.0)
[2019-12-30 19:40] LABS: BASOPHILS # (AUTO) 0.1 X10'3 (0-0.2); BASOPHILS % (AUTO) 0.9 % (0-1); EOSINOPHILS % (AUTO) 0.1 % (0-6); LYMPHOCYTES # (AUTO) 2.9 X10'3 (1.1-4.8); LYMPHOCYTES % (AUTO) 21.8 % (21-51); MEAN CORPUSCULAR HEMOGLOBIN 27.1 PG (27.0-31.0); MEAN CORPUSCULAR HGB CONC 32.9 g/dL (33.0-36.5); MEAN CORPUSCULAR VOLUME 82.6 FL (78-98); MONOCYTES # (AUTO) 0.7 X10'3 (0-0.9); MONOCYTES % (AUTO) 5.4 % (2-12); NEUTROPHILS # (AUTO) 9.7 X10'3 (1.8-7.7); NEUTROPHILS % (AUTO) 71.8 % (42-75); PLATELET COUNT 315 X10'3 (140-440); RED BLOOD COUNT 5.09 X10'6 (4.20-5.60); RED CELL DISTRIBUTION WIDTH 15.6 % (11.5-14.5); WHITE BLOOD COUNT 13.5 X10'3 (4.5-11.0)
[2019-12-30 19:54] LABS: ALANINE AMINOTRANSFERASE 21 U/L (12-78); ALBUMIN 3.4 G/DL (3.4-5.0); ALBUMIN/GLOBULIN RATIO 0.6 (1.1-1.5); ALKALINE PHOSPHATASE 93 IU/L (46-116); ANION GAP 12 (8-16); ASPARTATE AMINO TRANSFERASE 22 U/L (10-37); BILIRUBIN,TOTAL 0.3 MG/DL (0.1-1.0); BLOOD UREA NITROGEN 9 MG/DL (7-18); BUN/CREATININE RATIO 7.5 (6.6-38.0); CALCIUM 8.7 MG/DL (8.5-10.1); CHLORIDE 101 MMOL/L (99-107); ETHANOL < 0.010 GM/DL (0.0-0.010); GLUCOSE 138 MG/DL (70-104); LIPASE 462 U/L (73-393); MAGNESIUM 2.1 MG/DL (1.5-2.4); POTASSIUM 4.3 MMOL/L (3.5-5.1); SODIUM 136 MMOL/L (135-145); TOTAL PROTEIN 8.7 G/DL (6.4-8.2); eGFR 46 ML/MIN
[2019-12-30] MEDS ORDERED: acetaminophen 325mg tablet PO ONE (20:10)
[2019-12-30] MEDS ORDERED: morphine 10mg/ml inj. IM ONE ×2 (20:50→22:20)
[2019-12-30] MEDS ORDERED: normal saline 1000ML IV soln IVB ONE (20:50)
[2019-12-30 22:10] LABS: URINE AMPHETAMINE SCREEN NEGATIVE (Neg); URINE BARBITUATE SCREEN NEGATIVE (Neg); URINE BENZODIAZEPINES SCREEN POSITIVE (Neg); URINE CANNABINOID SCREEN NEGATIVE (Neg); URINE COCAINE SCREEN NEGATIVE (Neg); URINE METHADONE SCREEN NEGATIVE (Neg); URINE OPIATE SCREEN POSITIVE (Neg); URINE PHENCYCLIDINE SCREEN NEGATIVE (Neg)
--- NOTE | 2019-12-30 22:10 | NUR ---
Pt recieved approx 300 mL of NS before IV infiltrated. Pt able to hydrate PO without difficulty.
[2019-12-30 22:11] LABS: CLARITY,URINE SLIGHTLY CLOUDY (Clear); COLOR,URINE YELLOW (Yellow); GLUCOSE, URINE NEGATIVE (Neg); KETONES,URINE 15 mg/dl (Neg); LEUKOCYTE ESTERASE ,URINE TRACE (Neg); NITRITES, URINE NEGATIVE (Neg); OCCULT BLOOD,URINE NEGATIVE (Neg); PROTEIN,URINE NEGATIVE (Neg)
[2019-12-30 22:19] LABS: UA COLLECTION TYPE CLN CATCH MIDSTREAM
[2019-12-30 22:20] LABS: BACTERIA,URINE FEW /HPF (Neg); RBC,URINE NONE SEEN /HPF (0-2); SQUAMOUS EPITHELIAL CELL,UR MODERATE /LPF (FEW); WBC,URINE 0-4 /HPF (0-4)
[2019-12-30 23:04] VITALS: BP 165/85
== END 2019-12-30 23:00 | disposition home or self-care (01) ==
LOC: ER 18:38
DX: N28.9 Disorder of kidney and ureter, unspecified (principal); E86.0 Dehydration; R10.32 Left lower quadrant pain; G43.909 Migraine, unspecified, not intractable, without status migrainosus; E78.00 Pure hypercholesterolemia, unspecified; I10 Essential (primary) hypertension; J45.909 Unspecified asthma, uncomplicated; G89.29 Other chronic pain; F41.9 Anxiety disorder, unspecified; F32.9 Major depressive disorder, single episode, unspecified; Z90.49 Acquired absence of other specified parts of digestive tract; Z90.710 Acquired absence of both cervix and uterus; Z98.890 Other specified postprocedural states; Z90.89 Acquired absence of other organs; Z85.3 Personal history of malignant neoplasm of breast; Z85.43 Personal history of malignant neoplasm of ovary; Z88.2 Allergy status to sulfonamides; Z88.6 Allergy status to analgesic agent; Z91.040 Latex allergy status; Z88.8 Allergy status to other drugs, medicaments and biological substances; Z79.899 Other long term (current) drug therapy
CPT/HCPCS: 36415; 74176; 80053; 80305; 80320; 81001; 83605; 83690; 83735; 84145; 85025; 87040; 87088; 96372; 99284; J2270

== ENCOUNTER 2020-05-05 09:49 | Inpatient (IN) | payer MEDICAID ==
[~2020-05-05] VITALS: Ht 149.9 cm; Wt 77.4 kg
--- NOTE | 2020-05-05 09:58 | NUR ---
Dr. Fernandez at bedside during triage
[2020-05-05] MEDS ORDERED: morphine 4 MG/ML inj SYRINge IV ONE (10:00)
[2020-05-05] MEDS ORDERED: HYDROmorphone 1 mg/ml syringe IV ONE ×3 (10:05→14:10)
[2020-05-05] MEDS ORDERED: normal saline 1000ML IV soln IVB ONE (10:30)
[2020-05-05 10:47] LABS: BASOPHILS # (AUTO) 0.1 X10'3 (0-0.2); BASOPHILS % (AUTO) 0.4 % (0-1); EOSINOPHILS # (AUTO) 0.1 X10'3 (0-0.9); EOSINOPHILS % (AUTO) 0.4 % (0-6); HEMATOCRIT 26.1 % (35.0-45.0); HEMOGLOBIN 8.3 g/dl (12.0-16.0); LYMPHOCYTES # (AUTO) 1.6 X10'3 (1.1-4.8); LYMPHOCYTES % (AUTO) 6.8 % (21-51); MEAN CORPUSCULAR HGB CONC 31.8 g/dL (33.0-36.5); MEAN CORPUSCULAR VOLUME 81.9 FL (78-98); MEAN PLATELET VOLUME 9.8 FL (7.4-10.4); MONOCYTES # (AUTO) 2.1 X10'3 (0-0.9); MONOCYTES % (AUTO) 8.9 % (2-12); NEUTROPHILS # (AUTO) 19.9 X10'3 (1.8-7.7); NEUTROPHILS % (AUTO) 83.5 % (42-75); PLATELET COUNT 462 X10'3 (140-440); RED BLOOD COUNT 3.18 X10'6 (4.20-5.60); RED CELL DISTRIBUTION WIDTH 14.8 % (11.5-14.5); WHITE BLOOD COUNT 23.8 X10'3 (4.5-11.0)
[2020-05-05] MEDS ORDERED: diphenhydrAMINE 50 mg/ml inj IV ONE (10:50)
[2020-05-05] MEDS ORDERED: diatrozoate meglu/diatrozoate sod (37% iodine) 120ML oral solution PO ONE (10:50)
[2020-05-05] MEDS ORDERED: diatr meglu/diatrizoate 30ml oral sol.-(3 dose) bottle PO ONE (10:55)
[2020-05-05 10:58] LABS: ALANINE AMINOTRANSFERASE 19 U/L (12-78); ALBUMIN 2.1 G/DL (3.4-5.0); ALBUMIN/GLOBULIN RATIO 0.4 (1.1-1.5); ALKALINE PHOSPHATASE 100 IU/L (46-116); ANION GAP 11 (8-16); ASPARTATE AMINO TRANSFERASE 26 U/L (10-37); BILIRUBIN,TOTAL 0.6 MG/DL (0.1-1.0); BLOOD UREA NITROGEN 17 MG/DL (7-18); BUN/CREATININE RATIO 14.5 (6.6-38.0); CALCIUM 8.3 MG/DL (8.5-10.1); CHLORIDE 98 MMOL/L (99-107); CREATININE 1.17 MG/DL (0.40-0.90); GLUCOSE 131 MG/DL (70-104); POTASSIUM 3.8 MMOL/L (3.5-5.1); SODIUM 132 MMOL/L (135-145); TOTAL CARBON DIOXIDE 22.6 MMOL/L (24-32); TOTAL PROTEIN 7.5 G/DL (6.4-8.2); eGFR 48 ML/MIN
[2020-05-05 11:07] LABS: PLATELET ESTIMATE INCREASED; TOTAL CELLS COUNTED 100
[2020-05-05] MEDS ORDERED: morphine 2 MG/ML inj. syringe IV PRN ×2 (11:15)
[2020-05-05] MEDS ORDERED: acetaminophen 325mg tablet PO PRN ×2 (11:15)
[2020-05-05] MEDS ORDERED: mag hydrox/Alum hydrox/simeth 30ml oral suspension PO PRN (11:15)
[2020-05-05] MEDS: dextrose 5%-1/2 normal saline 1,000 ML IV SCH ×2 (11:15→21:15)
[2020-05-05] MEDS ORDERED: magnesium hydroxide 30ml (MOM) UD suspension PO PRN (11:15)
--- NOTE | 2020-05-05 11:52 | NUR ---
Pt to CT, non con
--- NOTE | 2020-05-05 12:07 | NUR ---
Back from CT via [facility] at this time.
[2020-05-05] MEDS ORDERED: OXYC1TAB17 PO (12:16)
[2020-05-05] MEDS ORDERED: HYDR-3686 PO (12:16)
[2020-05-05] MEDS ORDERED: GABA600T13 PO (12:16)
[2020-05-05] MEDS ORDERED: ESTR2TAB6 PO (12:16)
[2020-05-05] MEDS ORDERED: BECL10.62 PO (12:17)
[2020-05-05] MEDS ORDERED: HYDR4TAB55 PO (12:17)
[2020-05-05] MEDS ORDERED: SERT100T10 PO (12:17)
[2020-05-05] MEDS ORDERED: OLOP2.5D6 EACHEYE (12:17)
[2020-05-05] MEDS ORDERED: OMEP-50 PO (12:17)
[2020-05-05] MEDS ORDERED: DIPH25CA46 PO (12:17)
[2020-05-05] MEDS ORDERED: CHOL200016 PO (12:17)
[2020-05-05] MEDS ORDERED: TRAZ-256 PO (12:17)
[2020-05-05] MEDS ORDERED: DOCU-22 PO (12:17)
--- NOTE | 2020-05-05 13:16 | NUR ---
CALLED FOR REPORT, ER NURSE AT [facility]UNCH. AWAITING HER CALL
--- NOTE | 2020-05-05 13:39 | NUR ---
RECEIVED REPORT FROM LADAN GAVIN
[2020-05-05 14:00] VITALS: BP 148/64
[2020-05-05] MEDS ORDERED: naloxone 0.4 mg/ml inj IV PRN (14:55)
[2020-05-05] MEDS: HYDROmorphone/NS 1 mg/ml CADD 50 ML IV SCH ×5 (15:48→23:00)
[2020-05-05 16:07] LABS: CLARITY,URINE SLIGHTLY CLOUDY (Clear); COLOR,URINE AMBER (Yellow); GLUCOSE, URINE NEGATIVE (Neg); KETONES,URINE TRACE mg/dl (Neg); LEUKOCYTE ESTERASE ,URINE TRACE (Neg); NITRITES, URINE NEGATIVE (Neg); OCCULT BLOOD,URINE NEGATIVE (Neg); PROTEIN,URINE 30 mg/dl (Neg)
[2020-05-05 16:10] LABS: UA COLLECTION TYPE CLN CATCH MIDSTREAM
[2020-05-05 16:22] LABS: MUCUS STRANDS MANY /LPF (Neg); SQUAMOUS EPITHELIAL CELL,UR MANY /LPF (FEW)
[2020-05-05 16:24] LABS: COARSE GRANULAR CAST 0-3 /LPF (NEGATIVE); HYALINE CASTS >30 /LPF (NEGATIVE)
[2020-05-05 16:26] LABS: CELLULAR CAST 0-4 /LPF (NEGATIVE)
[2020-05-05 16:27] LABS: BACTERIA,URINE FEW /HPF (Neg); RBC,URINE 0-2 /HPF (0-2); WBC,URINE 0-4 /HPF (0-4); YEAST FEW /HPF (NEGATIVE)
[2020-05-05] MEDS: piperacillin/tazo 4.5gm/100ml 100 ML IV SCH (17:21)
--- NOTE | 2020-05-05 18:00 | NUR ---
Patient in room [facility]. I have received report from Autumn GAVIN and had the opportunity to ask questions and assume patient care.
--- NOTE | 2020-05-05 18:08 | NUR ---
Problems reprioritized. Patient report given, questions answered & plan of care reviewed with ENA GAVIN.
[2020-05-05] MEDS ORDERED: pantoprazole 40 MG vial IV ONE (19:50)
[2020-05-05 20:00] VITALS: BP 132/32
[2020-05-05] MEDS: ondansetron/PF 4mg/2ml inj IV PRN (23:21)
[2020-05-06] MEDS: piperacillin/tazo 4.5gm/100ml 100 ML IV SCH ×3 (00:14→15:49)
[2020-05-06 00:35] VITALS: BP 108/51
[2020-05-06] MEDS: HYDROmorphone/NS 1 mg/ml CADD 50 ML IV SCH ×12 (01:00→23:00)
--- NOTE | 2020-05-06 06:33 | NUR ---
Problems reprioritized. Patient report given, questions answered & plan of care reviewed with Dennise GAVIN.
--- NOTE | 2020-05-06 06:41 | NUR ---
Patient in room [facility]. I have received report from Rui GAVIN and had the opportunity to ask questions and assume patient care.
[2020-05-06 07:00] VITALS: BP 113/57
[2020-05-06 07:00] LABS: BASOPHILS # (AUTO) 0.1 X10'3 (0-0.2); BASOPHILS % (AUTO) 0.7 % (0-1); EOSINOPHILS % (AUTO) 0.2 % (0-6); HEMATOCRIT 26.1 % (35.0-45.0); HEMOGLOBIN 8.3 g/dl (12.0-16.0); LYMPHOCYTES # (AUTO) 1.4 X10'3 (1.1-4.8); LYMPHOCYTES % (AUTO) 9.7 % (21-51); MEAN CORPUSCULAR HEMOGLOBIN 26.4 PG (27.0-31.0); MEAN CORPUSCULAR HGB CONC 31.9 g/dL (33.0-36.5); MEAN CORPUSCULAR VOLUME 82.8 FL (78-98); MEAN PLATELET VOLUME 9.9 FL (7.4-10.4); MONOCYTES % (AUTO) 6.9 % (2-12); NEUTROPHILS # (AUTO) 11.8 X10'3 (1.8-7.7); NEUTROPHILS % (AUTO) 82.5 % (42-75); PLATELET COUNT 418 X10'3 (140-440); RED BLOOD COUNT 3.15 X10'6 (4.20-5.60); RED CELL DISTRIBUTION WIDTH 15.2 % (11.5-14.5); WHITE BLOOD COUNT 14.3 X10'3 (4.5-11.0)
[2020-05-06] MEDS: dextrose 5%-1/2 normal saline 1,000 ML IV SCH ×3 (07:15→20:18)
[2020-05-06 07:18] LABS: ALBUMIN 1.7 G/DL (3.4-5.0); ANION GAP 11 (8-16); BLOOD UREA NITROGEN 8 MG/DL (7-18); BUN/CREATININE RATIO 8.7 (6.6-38.0); CHLORIDE 106 MMOL/L (99-107); CREATININE 0.92 MG/DL (0.40-0.90); GLUCOSE 140 MG/DL (70-104); POTASSIUM 3.8 MMOL/L (3.5-5.1); SODIUM 141 MMOL/L (135-145); eGFR 63 ML/MIN
[2020-05-06] MEDS ORDERED: docusate sod 100mg capsule PO PRN (10:30)
[2020-05-06] MEDS ORDERED: hydrOXYzine 25 MG tablet PO PRN (10:30)
[2020-05-06] MEDS ORDERED: HYDROMORPHONE HCL PO PRN (10:30)
[2020-05-06] MEDS ORDERED: oxyCODONE/APAP 10/325mg tablet PO PRN (10:30)
[2020-05-06] MEDS: ondansetron/PF 4mg/2ml inj IV PRN ×2 (11:55→20:37)
[2020-05-06 12:00] VITALS: BP 102/37
--- NOTE | 2020-05-06 12:10 | NUR ---
Abilio, Industrial Psychologist, requested Mag & Phos labs be ordered baseline level pre-TPN admin. Add on tests were ordered per TPN protocol. Lab notified.
[2020-05-06 12:44] LABS: MAGNESIUM 2.2 MG/DL (1.5-2.4); PHOSPHORUS 3.5 MG/DL (2.3-4.5)
--- NOTE | 2020-05-06 12:49 | NUR ---
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 Pt noted feces in abdominal wound vac SENIOR NET WEB DEVELOPER per EMR w/ fistula bag placed today per WOC note. Pt NPO at this time pending central IV access w/ TPN to start today per RN. TPN recs below using IBW since no scaled wt this admit; RD recommended updated scaled wt for optimal PN recs and MD notified. DEX loading using current wt as only option at this time. RD d/w RN regarding serum Mg and Phos check if MD agreeable prior to PN in order to more accurately determine tolerance. Will continue to monitor. Rec: 1. TPN per MD via central access using 3:1 Clinimix E 5/20 w/ 200ml 20% intralipids at 70ml/hr goal. To provide 76g AA, 305g DEX(2.82 mg/kg/min), and total kcals. Initiate at 30ml/hr and advance Q12 to goal as tolerated. 2. PALB/TG Q /; daily wts 3. monitor for PN tolerance 4. once PO; advance diet as medically indicated to regular Addendum: 05/06/20 at [address] Amended: Links added.
[2020-05-06] MEDS ORDERED: magnesium 2GM in 50ml NS 50 ML IV PRN (14:20)
[2020-05-06] MEDS ORDERED: Neutra Phos packet PO PRN (14:20)
[2020-05-06] MEDS ORDERED: potassium CL 10mEq/100ml bag 100 ML IV PRN ×4 (14:20)
[2020-05-06] MEDS ORDERED: magnesium 4gm in 100ml NS 100 ML IV PRN (14:20)
[2020-05-06] MEDS ORDERED: magnesium Cl slow-release 64mg tablet PO PRN (14:20)
[2020-05-06] MEDS ORDERED: potassium Cl 20mEq/100mL bag 100 ML IV PRN (14:20)
[2020-05-06] MEDS ORDERED: potassium Cl 20 mEq SR tablet PO PRN ×3 (14:20)
[2020-05-06 15:17] LABS: ALANINE AMINOTRANSFERASE 33 U/L (12-78); ALBUMIN 1.8 G/DL (3.4-5.0); ALBUMIN/GLOBULIN RATIO 0.4 (1.1-1.5); ALKALINE PHOSPHATASE 86 IU/L (46-116); ANION GAP 9 (8-16); ASPARTATE AMINO TRANSFERASE 45 U/L (10-37); BILIRUBIN,TOTAL 0.2 MG/DL (0.1-1.0); BLOOD UREA NITROGEN 7 MG/DL (7-18); BUN/CREATININE RATIO 7.9 (6.6-38.0); CALCIUM 8.1 MG/DL (8.5-10.1); CHLORIDE 107 MMOL/L (99-107); CREATININE 0.89 MG/DL (0.40-0.90); GLUCOSE 112 MG/DL (70-104); POTASSIUM 3.3 MMOL/L (3.5-5.1); PREALBUMIN 7.7 MG/DL (19-36); SODIUM 142 MMOL/L (135-145); TOTAL CARBON DIOXIDE 25.6 MMOL/L (24-32); TOTAL PROTEIN 6.9 G/DL (6.4-8.2); TRIGLYCERIDES 120 MG/DL (20-135); eGFR 65 ML/MIN
[2020-05-06] MEDS: gabapentin 300mg capsule PO SCH ×2 (15:49→20:23)
[2020-05-06] MEDS: LORazepam 0.5 MG tablet PO PRN (17:24)
[2020-05-06 18:00] VITALS: BP 126/58
--- NOTE | 2020-05-06 18:54 | NUR ---
Patient in room [facility]. I have received report from Murphy GAVIN and had the opportunity to ask questions and assume patient care.
[2020-05-06] MEDS: K and/or MAG REPLACEMENT MC SCH (20:00)
[2020-05-06] MEDS: diphenhydrAMINE 25mg capsule PO SCH (20:21)
[2020-05-06] MEDS: lactobacillus rhamnosus 10,000 MMU CELLS/CAPSULE PO SCH (20:21)
[2020-05-06] MEDS: pantoprazole 40mg Tablet.DR PO SCH (20:21)
[2020-05-06] MEDS: traZODone 50mg tablet PO SCH (20:22)
[2020-05-06] MEDS: potassium Cl 20 mEq SR tablet PO PRN (20:25)
[2020-05-06] MEDS ORDERED: [UNRECOGNIZED DRUG - REMARK] IV SCH ×4 (21:00)
[2020-05-06] MEDS ORDERED: Dextrose 10%-water IV solution 1,000 ML IV PRN (21:00)
[2020-05-07] VITALS: BP 130/68
[2020-05-07] MEDS: potassium Cl 20 mEq SR tablet PO PRN (00:26)
[2020-05-07] MEDS: piperacillin/tazo 4.5gm/100ml 100 ML IV SCH ×3 (00:27→16:53)
[2020-05-07] MEDS: HYDROmorphone/NS 1 mg/ml CADD 50 ML IV SCH ×12 (01:00→23:00)
[2020-05-07] MEDS: dextrose 5%-1/2 normal saline 1,000 ML IV SCH ×2 (04:38→14:13)
[2020-05-07 05:50] LABS: BASOPHILS # (AUTO) 0.1 X10'3 (0-0.2); BASOPHILS % (AUTO) 1.2 % (0-1); EOSINOPHILS # (AUTO) 0.3 X10'3 (0-0.9); EOSINOPHILS % (AUTO) 4.3 % (0-6); HEMATOCRIT 25.2 % (35.0-45.0); HEMOGLOBIN 8.3 g/dl (12.0-16.0); LYMPHOCYTES # (AUTO) 1.2 X10'3 (1.1-4.8); LYMPHOCYTES % (AUTO) 16.6 % (21-51); MEAN CORPUSCULAR HEMOGLOBIN 27.4 PG (27.0-31.0); MEAN CORPUSCULAR VOLUME 83.1 FL (78-98); MEAN PLATELET VOLUME 9.5 FL (7.4-10.4); MONOCYTES # (AUTO) 0.7 X10'3 (0-0.9); MONOCYTES % (AUTO) 9.3 % (2-12); NEUTROPHILS # (AUTO) 4.9 X10'3 (1.8-7.7); NEUTROPHILS % (AUTO) 68.6 % (42-75); PLATELET COUNT 408 X10'3 (140-440); RED BLOOD COUNT 3.03 X10'6 (4.20-5.60); RED CELL DISTRIBUTION WIDTH 14.8 % (11.5-14.5); WHITE BLOOD COUNT 7.2 X10'3 (4.5-11.0)
--- NOTE | 2020-05-07 06:11 | NUR ---
Problems reprioritized. Patient report given, questions answered & plan of care reviewed with Murphy GAVIN.
[2020-05-07 06:12] LABS: ALANINE AMINOTRANSFERASE 44 U/L (12-78); ALBUMIN 1.6 G/DL (3.4-5.0); ALBUMIN/GLOBULIN RATIO 0.3 (1.1-1.5); ALKALINE PHOSPHATASE 72 IU/L (46-116); ANION GAP 10 (8-16); ASPARTATE AMINO TRANSFERASE 56 U/L (10-37); BILIRUBIN,TOTAL 0.2 MG/DL (0.1-1.0); BLOOD UREA NITROGEN 5 MG/DL (7-18); BUN/CREATININE RATIO 6.2 (6.6-38.0); CHLORIDE 109 MMOL/L (99-107); CREATININE 0.81 MG/DL (0.40-0.90); GLUCOSE 114 MG/DL (70-104); PHOSPHORUS 2.7 MG/DL (2.3-4.5); POTASSIUM 3.7 MMOL/L (3.5-5.1); SODIUM 143 MMOL/L (135-145); TOTAL CARBON DIOXIDE 24.4 MMOL/L (24-32); TOTAL PROTEIN 6.2 G/DL (6.4-8.2); TRIGLYCERIDES 144 MG/DL (20-135); eGFR 73 ML/MIN
--- NOTE | 2020-05-07 06:46 | NUR ---
Patient in room [facility]. I have received report from Elizabeth GAVIN and had the opportunity to ask questions and assume patient care.
[2020-05-07] MEDS: estradiol 1mg tablet PO SCH (07:58)
[2020-05-07] MEDS: naphazoline/pheniramine eye 1 DROP BOTTLE EACHEYE SCH (07:58)
[2020-05-07] MEDS: pantoprazole 40mg Tablet.DR PO SCH ×2 (07:59→20:19)
[2020-05-07] MEDS: sertraline 50mg tablet PO SCH (07:59)
[2020-05-07] MEDS: lactobacillus rhamnosus 10,000 MMU CELLS/CAPSULE PO SCH ×2 (07:59→20:19)
[2020-05-07] MEDS: gabapentin 300mg capsule PO SCH ×3 (07:59→20:19)
[2020-05-07 08:00] VITALS: BP 113/59
[2020-05-07] MEDS: K and/or MAG REPLACEMENT MC SCH ×2 (08:00→20:00)
[2020-05-07] MEDS ORDERED: cholecalciferol (vitamin D) 400 unit tablet PO SCH (08:00)
[2020-05-07] MEDS: budesonide 0.5mg/2ml UD nebule IH SCH ×2 (08:00→20:00)
--- NOTE | 2020-05-07 09:19 | NUR ---
[facility] LINE INFORMATION: REF: [id number] LOT: [id number] EXP: 02/16/2021
[2020-05-07] MEDS ORDERED: [UNRECOGNIZED DRUG - REMARK] IV SCH ×4 (10:00)
--- NOTE | 2020-05-07 11:43 | NUR ---
pt is in bed rest. Addendum: 05/07/20 at 1143 by Dennise Hollins RN Amended: Links added.
[2020-05-07] MEDS: LORazepam 0.5 MG tablet PO PRN (14:18)
[2020-05-07] MEDS: cholecalciferol (vitamin D) 400 unit tablet PO SCH (16:53)
--- NOTE | 2020-05-07 18:30 | NUR ---
Patient in room [facility]. I have received report from LESLYE Bowden and had the opportunity to ask questions and assume patient care. Addendum: 05/07/20 at 1842 by Sarah Marie RN Amended: Links added.
--- NOTE | 2020-05-07 18:34 | NUR ---
Problems reprioritized. Patient report given, questions answered & plan of care reviewed with Jazmine GAIVN.
[2020-05-07 19:00] VITALS: BP 137/71
[2020-05-07] MEDS: traZODone 50mg tablet PO SCH (20:19)
[2020-05-07] MEDS: diphenhydrAMINE 25mg capsule PO SCH (20:20)
[2020-05-07 23:30] VITALS: BP 141/67
[2020-05-08] MEDS: piperacillin/tazo 4.5gm/100ml 100 ML IV SCH ×3 (00:16→16:39)
[2020-05-08] MEDS: dextrose 5%-1/2 normal saline 1,000 ML IV SCH ×3 (00:28→20:19)
[2020-05-08] MEDS: HYDROmorphone/NS 1 mg/ml CADD 50 ML IV SCH ×12 (01:00→23:00)
[2020-05-08 05:14] LABS: BASOPHILS # (AUTO) 0.1 X10'3 (0-0.2); BASOPHILS % (AUTO) 1.1 % (0-1); EOSINOPHILS # (AUTO) 0.2 X10'3 (0-0.9); EOSINOPHILS % (AUTO) 2.7 % (0-6); HEMOGLOBIN 8.1 g/dl (12.0-16.0); LYMPHOCYTES # (AUTO) 1.6 X10'3 (1.1-4.8); LYMPHOCYTES % (AUTO) 18.6 % (21-51); MEAN CORPUSCULAR HEMOGLOBIN 26.4 PG (27.0-31.0); MEAN CORPUSCULAR HGB CONC 32.5 g/dL (33.0-36.5); MEAN CORPUSCULAR VOLUME 81.3 FL (78-98); MEAN PLATELET VOLUME 9.8 FL (7.4-10.4); MONOCYTES # (AUTO) 0.9 X10'3 (0-0.9); MONOCYTES % (AUTO) 10.5 % (2-12); NEUTROPHILS # (AUTO) 5.6 X10'3 (1.8-7.7); NEUTROPHILS % (AUTO) 67.1 % (42-75); PLATELET COUNT 464 X10'3 (140-440); RED BLOOD COUNT 3.08 X10'6 (4.20-5.60); WHITE BLOOD COUNT 8.4 X10'3 (4.5-11.0)
[2020-05-08 05:24] LABS: ALANINE AMINOTRANSFERASE 36 U/L (12-78); ALBUMIN 1.6 G/DL (3.4-5.0); ALBUMIN/GLOBULIN RATIO 0.3 (1.1-1.5); ALKALINE PHOSPHATASE 69 IU/L (46-116); ANION GAP 9 (8-16); ASPARTATE AMINO TRANSFERASE 24 U/L (10-37); BILIRUBIN,TOTAL 0.1 MG/DL (0.1-1.0); BLOOD UREA NITROGEN 4 MG/DL (7-18); BUN/CREATININE RATIO 4.2 (6.6-38.0); CALCIUM 7.7 MG/DL (8.5-10.1); CHLORIDE 109 MMOL/L (99-107); CREATININE 0.95 MG/DL (0.40-0.90); GLUCOSE 111 MG/DL (70-104); MAGNESIUM 1.8 MG/DL (1.5-2.4); PHOSPHORUS 3.1 MG/DL (2.3-4.5); POTASSIUM 3.1 MMOL/L (3.5-5.1); SODIUM 142 MMOL/L (135-145); TOTAL CARBON DIOXIDE 23.9 MMOL/L (24-32); TOTAL PROTEIN 6.3 G/DL (6.4-8.2); eGFR 61 ML/MIN
--- NOTE | 2020-05-08 06:29 | NUR ---
Problems reprioritized. Patient report given, questions answered & plan of care reviewed with LESLYE Seymour. Addendum: 05/08/20 at 0629 by Sarah Marie RN Amended: Links added.
--- NOTE | 2020-05-08 06:31 | NUR ---
Patient in room [facility]. I have received report from julio lazcano and had the opportunity to ask questions and assume patient care.
[2020-05-08 07:00] VITALS: BP 153/63
[2020-05-08] MEDS: naphazoline/pheniramine eye 1 DROP BOTTLE EACHEYE SCH (08:00)
[2020-05-08] MEDS: K and/or MAG REPLACEMENT MC SCH ×2 (08:00→19:51)
[2020-05-08] MEDS: lactobacillus rhamnosus 10,000 MMU CELLS/CAPSULE PO SCH ×2 (09:43→19:59)
[2020-05-08] MEDS: gabapentin 300mg capsule PO SCH ×3 (09:43→20:06)
[2020-05-08] MEDS: pantoprazole 40mg Tablet.DR PO SCH ×2 (09:43→19:59)
[2020-05-08] MEDS: sertraline 50mg tablet PO SCH (09:44)
[2020-05-08] MEDS: cholecalciferol (vitamin D) 400 unit tablet PO SCH (09:44)
[2020-05-08] MEDS: estradiol 1mg tablet PO SCH (09:44)
[2020-05-08] MEDS: potassium Cl 20mEq/100mL bag 100 ML IV PRN ×2 (09:45→11:12)
[2020-05-08] MEDS: ondansetron/PF 4mg/2ml inj IV PRN (10:14)
[2020-05-08 11:00] VITALS: BP 141/61
--- NOTE | 2020-05-08 15:49 | NUR ---
PRESSURE ULCER EDUCATION: DEFINITION: A pressure ulcer is an area of skin that breaks down when you stay in one position too long. The constant pressure against the skin reduces the blood flow to that area and the affected tissue dies. CAUSES: "Being bedridden or in a wheelchair "Fragile skin "Having a chronic condition, such as diabetes or vascular disease "Inability to move certain parts of your body without assistance "Older age "Incontinence of urine or stool SYMPTOMS: "A reddened area that DOES NOT turn white when pressed on - this can be the beginning of a pressure ulcer "A blister, deep sore or a crater - these can be advanced pressure ulcers FIRST AID: "Relieve the pressure on this area "Keep the area clean and dry "Call your primary doctor if you see any of the above symptoms "DO NOT massage the area "DO NOT use a donut shaped or ring shaped pillow- these actually interfere with the blood flow and cause complications PREVENTION: "Check for pressure ulcers everyday "Change position at least every two hours to relieve pressure "Use items that help relieve pressure- pillows, sheepskin, foam padding, and powders. "Keep skin clean and dry "Eat healthy well balanced meals "Exercise daily IF YOU SEE ANY OF THESE SYMPTOMS WHILE IN THE HOSPITAL - TELL YOUR NURSE IMMEDIATELY. IF YOU SEE ANY OF THESE SYMPTOMS WHILE AT HOME OR HAVE ANY QUESTIONS OR CONCERNS ABOUT PRESSURE ULCERS - CALL YOUR PRIMARY DOCTOR IMMEDIATELY. Addendum: 05/08/20 at 1550 by Lu Kelley RN Amended: Links added.
[2020-05-08] MEDS: [UNRECOGNIZED DRUG - REMARK] IV SCH ×4 (16:39)
--- NOTE | 2020-05-08 18:21 | NUR ---
Problems reprioritized. Patient report given, questions answered & plan of care reviewed with PRUDENCE RN.
--- NOTE | 2020-05-08 18:36 | NUR ---
Patient in room [facility]. I have received report from BETTY GAVIN and had the opportunity to ask questions and assume patient care.
[2020-05-08] MEDS: budesonide 0.5mg/2ml UD nebule IH SCH (19:41)
[2020-05-08 20:00] VITALS: BP 124/50
[2020-05-08] MEDS: diphenhydrAMINE 25mg capsule PO SCH (20:06)
[2020-05-08] MEDS: traZODone 50mg tablet PO SCH (20:06)
[2020-05-09] VITALS: BP 115/51
[2020-05-09] MEDS: piperacillin/tazo 4.5gm/100ml 100 ML IV SCH ×3 (00:26→15:56)
[2020-05-09] MEDS: HYDROmorphone/NS 1 mg/ml CADD 50 ML IV SCH ×13 (01:00→23:00)
[2020-05-09] MEDS: dextrose 5%-1/2 normal saline 1,000 ML IV SCH ×2 (05:18→17:56)
[2020-05-09 06:18] LABS: BASOPHILS # (AUTO) 0.1 X10'3 (0-0.2); EOSINOPHILS # (AUTO) 0.3 X10'3 (0-0.9); EOSINOPHILS % (AUTO) 3.4 % (0-6); LYMPHOCYTES # (AUTO) 1.9 X10'3 (1.1-4.8); LYMPHOCYTES % (AUTO) 22.4 % (21-51); MEAN CORPUSCULAR HEMOGLOBIN 26.4 PG (27.0-31.0); MEAN CORPUSCULAR VOLUME 82.4 FL (78-98); MEAN PLATELET VOLUME 9.9 FL (7.4-10.4); MONOCYTES % (AUTO) 12.3 % (2-12); NEUTROPHILS # (AUTO) 5.2 X10'3 (1.8-7.7); NEUTROPHILS % (AUTO) 60.9 % (42-75); PLATELET COUNT 428 X10'3 (140-440); RED BLOOD COUNT 3.03 X10'6 (4.20-5.60); RED CELL DISTRIBUTION WIDTH 15.3 % (11.5-14.5); WHITE BLOOD COUNT 8.5 X10'3 (4.5-11.0)
--- NOTE | 2020-05-09 06:24 | NUR ---
Problems reprioritized. Patient report given, questions answered & plan of care reviewed with BETTY GAVIN.
[2020-05-09] MEDS: naphazoline/pheniramine eye 1 DROP BOTTLE EACHEYE SCH (06:54)
[2020-05-09 07:00] LABS: ALANINE AMINOTRANSFERASE 26 U/L (12-78); ALBUMIN 1.6 G/DL (3.4-5.0); ALBUMIN/GLOBULIN RATIO 0.4 (1.1-1.5); ALKALINE PHOSPHATASE 63 IU/L (46-116); ANION GAP 10 (8-16); ASPARTATE AMINO TRANSFERASE 17 U/L (10-37); BILIRUBIN,TOTAL 0.2 MG/DL (0.1-1.0); BLOOD UREA NITROGEN 7 MG/DL (7-18); BUN/CREATININE RATIO 9.3 (6.6-38.0); CALCIUM 7.6 MG/DL (8.5-10.1); CHLORIDE 112 MMOL/L (99-107); CREATININE 0.75 MG/DL (0.40-0.90); GLUCOSE 93 MG/DL (70-104); MAGNESIUM 1.7 MG/DL (1.5-2.4); PHOSPHORUS 3.2 MG/DL (2.3-4.5); POTASSIUM 3.4 MMOL/L (3.5-5.1); SODIUM 144 MMOL/L (135-145); TOTAL CARBON DIOXIDE 22.2 MMOL/L (24-32); eGFR 80 ML/MIN
[2020-05-09] MEDS: ondansetron/PF 4mg/2ml inj IV PRN (07:19)
[2020-05-09] MEDS: estradiol 1mg tablet PO SCH (07:21)
[2020-05-09] MEDS: lactobacillus rhamnosus 10,000 MMU CELLS/CAPSULE PO SCH ×2 (07:21→20:30)
[2020-05-09] MEDS: pantoprazole 40mg Tablet.DR PO SCH ×2 (07:22→20:29)
[2020-05-09] MEDS: cholecalciferol (vitamin D) 400 unit tablet PO SCH (07:22)
[2020-05-09] MEDS: gabapentin 300mg capsule PO SCH ×3 (07:22→20:29)
[2020-05-09] MEDS: sertraline 50mg tablet PO SCH (07:22)
[2020-05-09] MEDS: K and/or MAG REPLACEMENT MC SCH ×2 (08:00→20:00)
[2020-05-09 08:37] VITALS: BP 149/65
[2020-05-09] MEDS: budesonide 0.5mg/2ml UD nebule IH SCH ×2 (09:10→19:34)
[2020-05-09] MEDS: potassium Cl 20mEq/100mL bag 100 ML IV PRN ×2 (09:44→11:18)
[2020-05-09 11:00] VITALS: BP 142/60
[2020-05-09] MEDS: [UNRECOGNIZED DRUG - REMARK] IV SCH ×4 (11:44)
--- NOTE | 2020-05-09 16:19 | NUR ---
Reassessment: Pt tolerating TPN at goal w/ fistula bag 250ml output. Pt receiving dex/NS in addition to TPN; weaning at this time per RN. Pt receiving electrolyte replacements per protocol. Remains NPO at this time able to take PO meds w/ sips of water and would be okay to eat though would slow fistula wound healing per surgeon. Pt declines diverting colostomy per EMR. LBM 05/09. Will continue to monitor for TPN tolerance. Rec: 1. TPN per MD via central access using 3:1 Clinimix E 11/05 w/ 200ml 20% intralipids at 70ml/hr goal. To provide 76g AA, 305g DEX(2.82 mg/kg/min), and total kcals. Initiate at 30ml/hr and advance Q12 to goal as tolerated. 2. PALB/TG Q /; daily wts 3. monitor for PN tolerance 4. once PO; advance diet as medically indicated to regular w/ Vic ONS for wound healing needs Addendum: 05/09/20 at [address] Amended: Links added.
[2020-05-09] MEDS: CADD PCA waste documentation MC PRN (16:47)
[2020-05-09 18:00] VITALS: BP 106/41
--- NOTE | 2020-05-09 18:28 | NUR ---
Problems reprioritized. Patient report given, questions answered & plan of care reviewed with prudence rn.
--- NOTE | 2020-05-09 18:34 | NUR ---
Patient in room [facility]. I have received report from BETTY GAVIN and had the opportunity to ask questions and assume patient care.
[2020-05-09] MEDS: diphenhydrAMINE 25mg capsule PO SCH (20:29)
[2020-05-09] MEDS: traZODone 50mg tablet PO SCH (20:29)
[2020-05-10] VITALS: BP 137/60
[2020-05-10] MEDS: piperacillin/tazo 4.5gm/100ml 100 ML IV SCH ×3 (00:32→17:35)
[2020-05-10] MEDS: HYDROmorphone/NS 1 mg/ml CADD 50 ML IV SCH ×12 (01:00→23:00)
[2020-05-10 05:12] LABS: BASOPHILS # (AUTO) 0.1 X10'3 (0-0.2); EOSINOPHILS # (AUTO) 0.4 X10'3 (0-0.9); HEMATOCRIT 26.2 % (35.0-45.0); HEMOGLOBIN 8.7 g/dl (12.0-16.0); LYMPHOCYTES # (AUTO) 2.2 X10'3 (1.1-4.8); LYMPHOCYTES % (AUTO) 21.3 % (21-51); MEAN CORPUSCULAR HEMOGLOBIN 27.3 PG (27.0-31.0); MEAN CORPUSCULAR HGB CONC 33.1 g/dL (33.0-36.5); MEAN CORPUSCULAR VOLUME 82.5 FL (78-98); MEAN PLATELET VOLUME 9.4 FL (7.4-10.4); MONOCYTES # (AUTO) 1.1 X10'3 (0-0.9); MONOCYTES % (AUTO) 11.3 % (2-12); NEUTROPHILS # (AUTO) 6.4 X10'3 (1.8-7.7); NEUTROPHILS % (AUTO) 62.4 % (42-75); PLATELET COUNT 473 X10'3 (140-440); RED BLOOD COUNT 3.18 X10'6 (4.20-5.60); RED CELL DISTRIBUTION WIDTH 15.2 % (11.5-14.5); WHITE BLOOD COUNT 10.2 X10'3 (4.5-11.0)
[2020-05-10 05:30] LABS: ALANINE AMINOTRANSFERASE 23 U/L (12-78); ALBUMIN 1.8 G/DL (3.4-5.0); ALBUMIN/GLOBULIN RATIO 0.4 (1.1-1.5); ALKALINE PHOSPHATASE 72 IU/L (46-116); ANION GAP 6 (8-16); ASPARTATE AMINO TRANSFERASE 14 U/L (10-37); BILIRUBIN,TOTAL 0.2 MG/DL (0.1-1.0); BLOOD UREA NITROGEN 9 MG/DL (7-18); BUN/CREATININE RATIO 11.1 (6.6-38.0); CALCIUM 8.1 MG/DL (8.5-10.1); CHLORIDE 109 MMOL/L (99-107); CREATININE 0.81 MG/DL (0.40-0.90); GLUCOSE 121 MG/DL (70-104); MAGNESIUM 1.9 MG/DL (1.5-2.4); POTASSIUM 3.4 MMOL/L (3.5-5.1); SODIUM 141 MMOL/L (135-145); TOTAL CARBON DIOXIDE 25.7 MMOL/L (24-32); TOTAL PROTEIN 6.6 G/DL (6.4-8.2); eGFR 73 ML/MIN
--- NOTE | 2020-05-10 06:20 | NUR ---
Problems reprioritized. Patient report given, questions answered & plan of care reviewed with ALIN GAVIN.
[2020-05-10 07:00] VITALS: BP 157/77
[2020-05-10] MEDS: budesonide 0.5mg/2ml UD nebule IH SCH ×2 (07:33→20:00)
[2020-05-10] MEDS: naphazoline/pheniramine eye 1 DROP BOTTLE EACHEYE SCH (07:44)
[2020-05-10] MEDS: estradiol 1mg tablet PO SCH (07:44)
[2020-05-10] MEDS: lactobacillus rhamnosus 10,000 MMU CELLS/CAPSULE PO SCH ×2 (07:44→20:49)
[2020-05-10] MEDS: cholecalciferol (vitamin D) 400 unit tablet PO SCH (07:45)
[2020-05-10] MEDS: gabapentin 300mg capsule PO SCH ×3 (07:45→20:51)
[2020-05-10] MEDS: pantoprazole 40mg Tablet.DR PO SCH ×2 (07:45→20:50)
[2020-05-10] MEDS: sertraline 50mg tablet PO SCH (07:45)
[2020-05-10] MEDS: K and/or MAG REPLACEMENT MC SCH ×2 (08:00→20:00)
[2020-05-10] MEDS ORDERED: diphenhydrAMINE 25mg capsule PO ONE (09:05)
[2020-05-10 11:00] VITALS: BP 154/78
[2020-05-10] MEDS: [UNRECOGNIZED DRUG - REMARK] IV SCH ×4 (12:57)
[2020-05-10] MEDS: LORazepam 0.5 MG tablet PO PRN ×2 (14:16→20:51)
--- NOTE | 2020-05-10 19:04 | NUR ---
Patient in room [facility]. I have received report from ALIN GAVIN and had the opportunity to ask questions and assume patient care. Addendum: 05/10/20 at 1904 by Jeri Machuca RN Amended: Links added.
[2020-05-10 20:00] VITALS: BP 149/83
[2020-05-10] MEDS: traZODone 50mg tablet PO SCH (20:49)
[2020-05-10] MEDS: diphenhydrAMINE 25mg capsule PO SCH (20:50)
[2020-05-10] MEDS: triamcinolone acetonide 0.1% ointment 15gm TP SCH (20:55)
--- NOTE | 2020-05-10 21:00 | NUR ---
HS MEDICATIONS GIVEN USING CADD WITH GD PAIN CONTROL. LARGE FISTULA BAG TO THE ABD, CAN SEE SURGICAL WOUND AREA WELL. HAS PIC LINE AND PERIPHERAL IV'S IN PLACE WITH TPN INFUSING. USED BEDPAN TO VOID SKIN CARE DONE. BLOOD [id number].
--- NOTE | 2020-05-10 23:00 | NUR ---
Drainage from wound bag very foul smelling, orange brown liquid. There is leaking in the groin area and the lateral side of the bag. Paste applied and foam tape to reinforce leaking areas. Encouraged to keep her leg flat to promote bag adherence.
--- NOTE | 2020-05-10 23:00 | NUR ---
RESTING EYES CLOSED WITHOUT S&S OF DISTRESS.
[2020-05-11] VITALS: BP 151/71
--- NOTE | 2020-05-11 00:05 | NUR ---
PT AWOKE INC OF URINE. PUT ON BEDPAN VOIDED 400CC CLEAR YELLOW URINE. FISTULA BAG EMPTIED AND REPOSITIONED IN BED AFTER SKIN CARE DONE.
[2020-05-11] MEDS: piperacillin/tazo 4.5gm/100ml 100 ML IV SCH ×3 (00:10→15:35)
[2020-05-11] MEDS: HYDROmorphone/NS 1 mg/ml CADD 50 ML IV SCH ×12 (01:00→23:00)
--- NOTE | 2020-05-11 02:36 | NUR ---
pt awopke and accucheck done then on bedpan and 24 hour urine started. pt teaching done regarding it and the importance to her care.
--- NOTE | 2020-05-11 03:15 | NUR ---
PT USED THE BEDPAN BUT IN LIFTING UP STOOL WENT INTO THE BEDPAN AND URINE ENDED UP NEEDING TO BE TOSSED IT CONTAMINATED THE URINE AND THE RESULT. WOUND PASTE APPLIED TO THE AREA TO HELP WITH THIS AFTER SKIN CARE DONE THEN MICROFOAM TAPE TO THE BASE WELL.
--- NOTE | 2020-05-11 05:19 | NUR ---
picc line not drawing attempted x5 with flushing etc and changing arm position. lab notified to draw her.
--- NOTE | 2020-05-11 05:30 | NUR ---
skin care done and on the bedpan for urine and stool collection. fistula bag drained for 100cc of liquid stool.
--- NOTE | 2020-05-11 06:44 | NUR ---
Problems reprioritized. Patient report given, questions answered & plan of care reviewed with KIRBY GAVIN. Addendum: 05/11/20 at 0644 by Jeri Machuca RN Amended: Links added.
--- NOTE | 2020-05-11 06:52 | NUR ---
Patient in room [facility]. I have received report from Kanika GAVIN and had the opportunity to ask questions and assume patient care.
[2020-05-11 06:53] VITALS: BP_SYST 132; BP_SYST 160; BP_DIAS 77; BP_DIAS 95
[2020-05-11 07:19] LABS: ALANINE AMINOTRANSFERASE 24 U/L (12-78); ALBUMIN 1.8 G/DL (3.4-5.0); ALBUMIN/GLOBULIN RATIO 0.3 (1.1-1.5); ALKALINE PHOSPHATASE 77 IU/L (46-116); ANION GAP 10 (8-16); ASPARTATE AMINO TRANSFERASE 21 U/L (10-37); BILIRUBIN,TOTAL 0.1 MG/DL (0.1-1.0); BLOOD UREA NITROGEN 10 MG/DL (7-18); CALCIUM 8.3 MG/DL (8.5-10.1); CHLORIDE 107 MMOL/L (99-107); CREATININE 0.83 MG/DL (0.40-0.90); GLUCOSE 134 MG/DL (70-104); MAGNESIUM 1.9 MG/DL (1.5-2.4); PHOSPHORUS 2.5 MG/DL (2.3-4.5); POTASSIUM 3.4 MMOL/L (3.5-5.1); SODIUM 139 MMOL/L (135-145); TOTAL CARBON DIOXIDE 22.4 MMOL/L (24-32); TOTAL PROTEIN 7.1 G/DL (6.4-8.2); TRIGLYCERIDES 242 MG/DL (20-135); eGFR 71 ML/MIN
[2020-05-11] MEDS: budesonide 0.5mg/2ml UD nebule IH SCH ×2 (07:35→20:00)
[2020-05-11] MEDS: pantoprazole 40mg Tablet.DR PO SCH ×2 (07:36→19:49)
[2020-05-11] MEDS: lactobacillus rhamnosus 10,000 MMU CELLS/CAPSULE PO SCH ×2 (07:36→19:48)
[2020-05-11] MEDS: estradiol 1mg tablet PO SCH (07:36)
[2020-05-11] MEDS: gabapentin 300mg capsule PO SCH ×3 (07:36→19:49)
[2020-05-11] MEDS: cholecalciferol (vitamin D) 400 unit tablet PO SCH (07:36)
[2020-05-11] MEDS: sertraline 50mg tablet PO SCH (07:37)
[2020-05-11] MEDS: triamcinolone acetonide 0.1% ointment 15gm TP SCH ×2 (07:39→19:50)
[2020-05-11] MEDS: naphazoline/pheniramine eye 1 DROP BOTTLE EACHEYE SCH (07:44)
[2020-05-11] MEDS: dextrose 5%-1/2 normal saline 1,000 ML IV SCH (07:49)
[2020-05-11] MEDS: K and/or MAG REPLACEMENT MC SCH ×2 (08:00→20:00)
[2020-05-11] MEDS: ondansetron/PF 4mg/2ml inj IV PRN (08:59)
[2020-05-11] MEDS ORDERED: FLU VACC QS2020-21(6MOS UP)/PF 60 MCG/0.5 ML SYRINGE IMVAC ONE (10:20)
[2020-05-11 11:00] VITALS: BP 138/66
--- NOTE | 2020-05-11 13:58 | NUR ---
CHECKED BS AT 1400 [id number]
[2020-05-11] MEDS: [UNRECOGNIZED DRUG - REMARK] IV SCH ×4 (17:19)
--- NOTE | 2020-05-11 18:21 | NUR ---
Problems reprioritized. Patient report given, questions answered & plan of care reviewed with Jeri GAVIN.
--- NOTE | 2020-05-11 18:31 | NUR ---
Patient in room [facility]. I have received report from KIRBY GAVIN and had the opportunity to ask questions and assume patient care. Addendum: 05/11/20 at 1831 by Jeri Machuca RN Amended: Links added.
--- NOTE | 2020-05-11 19:00 | NUR ---
PT C/O ABD PAIN AND MEDICATED WITH NORCO FOR THIS AND ZOFRAN FOR C/O NAUSEA.
--- NOTE | 2020-05-11 19:00 | NUR ---
PT ASSISTED ON THE BED BONDS SKIN CARE DONE AND BARRIER CREAM TO AREA SKIN PINK IN AREA. Addendum: 05/12/20 at 0046 by Jeri Machuca RN NOTE 1900 CHARTING ON MEDICATION AND 1999 ON MEDS AND AMBULATION IS FOR A DIFFERENT PT.
[2020-05-11] MEDS: traZODone 50mg tablet PO SCH (19:48)
[2020-05-11] MEDS: LORazepam 0.5 MG tablet PO PRN (19:48)
[2020-05-11] MEDS: diphenhydrAMINE 25mg capsule PO SCH (19:49)
--- NOTE | 2020-05-11 20:30 | NUR ---
PT TOOK HS MEDS AT THIS TIME AND UP AMBULATING IN THE FLEMING.
[2020-05-11 23:00] VITALS: BP 116/54
--- NOTE | 2020-05-12 00:24 | NUR ---
PT C/O PAIN ABD MEDICATED WITH NORCO AND PO ATIVAN FOR DT'S AND FLAGYL ORDERED. PT HAD PRIOR TO THIS BEEN UP AMBULATING IN THE FLEMING 3 LAPS. Addendum: 05/12/20 at 0037 by Jeri Machuca RN THIS NOTE IS ON THE WRONG PT. SHE IS RESTING EYES CLOSED WITHOUT CHANGES AND CONTINUE TO DO 24 HOUR URINE COLLECTION ON HER.
[2020-05-12] MEDS: piperacillin/tazo 4.5gm/100ml 100 ML IV SCH ×4 (00:32→23:40)
[2020-05-12] MEDS: HYDROmorphone/NS 1 mg/ml CADD 50 ML IV SCH ×12 (01:00→23:00)
--- NOTE | 2020-05-12 03:00 | NUR ---
RESTING EYES CLOSED WITHOUT CHANGES.
[2020-05-12] MEDS: dextrose 5%-1/2 normal saline 1,000 ML IV SCH ×2 (03:15→23:15)
--- NOTE | 2020-05-12 05:38 | NUR ---
BAG HAS NO CONTENTS NOTED UNDER FISTULA WAFER LEAKED UNDER IT TO FRONT OF PERINEA LIQUID YELLOW STOOL SKIN CARE DONE BARRIER CREAM TO KIA AREA AND AT BASE OF WAFER COLOSTOMY PASTE APPLIED THEN MICROFOAM TAPE OVER IT TO AND CLEAR TAPE TO HOLD IT IN PLACE.
--- NOTE | 2020-05-12 06:06 | NUR ---
Problems reprioritized. Patient report given, questions answered & plan of care reviewed with KIRBY GAVIN. Addendum: 05/12/20 at 0607 by Jeri Machuca RN Amended: Links added.
--- NOTE | 2020-05-12 06:48 | NUR ---
Patient in room [facility]. I have received report from Jeri GAVIN and had the opportunity to ask questions and assume patient care.
[2020-05-12] MEDS: naphazoline/pheniramine eye 1 DROP BOTTLE EACHEYE SCH (06:58)
[2020-05-12] MEDS: triamcinolone acetonide 0.1% ointment 15gm TP SCH ×2 (08:00→21:56)
[2020-05-12] MEDS: K and/or MAG REPLACEMENT MC SCH ×2 (08:00→20:00)
[2020-05-12] MEDS: sertraline 50mg tablet PO SCH (08:18)
[2020-05-12] MEDS: pantoprazole 40mg Tablet.DR PO SCH ×2 (08:18→21:38)
[2020-05-12] MEDS: cholecalciferol (vitamin D) 400 unit tablet PO SCH (08:18)
[2020-05-12] MEDS: lactobacillus rhamnosus 10,000 MMU CELLS/CAPSULE PO SCH ×2 (08:18→21:38)
[2020-05-12] MEDS: gabapentin 300mg capsule PO SCH ×3 (08:18→21:38)
[2020-05-12] MEDS: estradiol 1mg tablet PO SCH (08:19)
[2020-05-12] MEDS: budesonide 0.5mg/2ml UD nebule IH SCH ×2 (08:25→20:00)
[2020-05-12 09:11] VITALS: BP 157/66
[2020-05-12] MEDS ORDERED: FLU VACC QS2020-21(6MOS UP)/PF 60 MCG/0.5 ML SYRINGE IMVAC ONE (10:00)
--- NOTE | 2020-05-12 11:10 | NUR ---
Wound care in to change dressing, leaking. Addendum: 05/12/20 at 1111 by Renuka Michelle RN Amended: Links added.
[2020-05-12 11:57] VITALS: BP 143/64
[2020-05-12] MEDS: [UNRECOGNIZED DRUG - REMARK] IV SCH ×4 (12:38)
[2020-05-12] MEDS: ondansetron/PF 4mg/2ml inj IV PRN ×2 (13:29→21:38)
--- NOTE | 2020-05-12 18:11 | NUR ---
Problems reprioritized. Patient report given, questions answered & plan of care reviewed with Jailyn GAVIN.
[2020-05-12 18:15] VITALS: BP 138/73
--- NOTE | 2020-05-12 18:41 | NUR ---
Patient in room [facility]. I have received report from LESLYE Grayson and had the opportunity to ask questions and assume patient care.
[2020-05-12] MEDS: diphenhydrAMINE 25mg capsule PO SCH (21:38)
[2020-05-12] MEDS: traZODone 50mg tablet PO SCH (21:39)
[2020-05-13 00:15] VITALS: BP_SYST 112; BP_SYST 140; BP_DIAS 62; BP_DIAS 75
[2020-05-13] MEDS: HYDROmorphone/NS 1 mg/ml CADD 50 ML IV SCH ×8 (01:00→15:00)
[2020-05-13 05:38] LABS: ALANINE AMINOTRANSFERASE 20 U/L (12-78); ALBUMIN 1.8 G/DL (3.4-5.0); ALBUMIN/GLOBULIN RATIO 0.4 (1.1-1.5); ALKALINE PHOSPHATASE 72 IU/L (46-116); ANION GAP 8 (8-16); ASPARTATE AMINO TRANSFERASE 15 U/L (10-37); BILIRUBIN,TOTAL 0.1 MG/DL (0.1-1.0); BLOOD UREA NITROGEN 13 MG/DL (7-18); BUN/CREATININE RATIO 14.4 (6.6-38.0); CALCIUM 8.4 MG/DL (8.5-10.1); CHLORIDE 109 MMOL/L (99-107); GLUCOSE 132 MG/DL (70-104); POTASSIUM 3.3 MMOL/L (3.5-5.1); SODIUM 141 MMOL/L (135-145); TOTAL CARBON DIOXIDE 24.5 MMOL/L (24-32); TOTAL PROTEIN 6.9 G/DL (6.4-8.2); eGFR 65 ML/MIN
--- NOTE | 2020-05-13 06:31 | NUR ---
Problems reprioritized. Patient report given, questions answered & plan of care reviewed with LESLYE Blackman.
--- NOTE | 2020-05-13 06:35 | NUR ---
Patient in room [facility]. I have received report from LESLYE Glaser and had the opportunity to ask questions and assume patient care.
[2020-05-13] MEDS: budesonide 0.5mg/2ml UD nebule IH SCH (08:00)
[2020-05-13] MEDS: K and/or MAG REPLACEMENT MC SCH (08:00)
[2020-05-13] MEDS: naphazoline/pheniramine eye 1 DROP BOTTLE EACHEYE SCH (08:00)
[2020-05-13] MEDS: triamcinolone acetonide 0.1% ointment 15gm TP SCH (08:00)
[2020-05-13] MEDS: piperacillin/tazo 4.5gm/100ml 100 ML IV SCH ×2 (08:10→16:10)
[2020-05-13] MEDS: gabapentin 300mg capsule PO SCH ×2 (08:10→13:36)
[2020-05-13] MEDS: sertraline 50mg tablet PO SCH (08:10)
[2020-05-13] MEDS: cholecalciferol (vitamin D) 400 unit tablet PO SCH (08:10)
[2020-05-13] MEDS: pantoprazole 40mg Tablet.DR PO SCH (08:11)
[2020-05-13] MEDS: estradiol 1mg tablet PO SCH (08:11)
[2020-05-13] MEDS: lactobacillus rhamnosus 10,000 MMU CELLS/CAPSULE PO SCH (08:11)
[2020-05-13] MEDS: ondansetron/PF 4mg/2ml inj IV PRN (08:13)
[2020-05-13 08:37] VITALS: BP 146/72
--- NOTE | 2020-05-13 08:40 | NUR ---
Pt. refused [id number] SVN
[2020-05-13] MEDS: potassium Cl 20mEq/100mL bag 100 ML IV PRN ×2 (10:26→11:22)
[2020-05-13] MEDS: [UNRECOGNIZED DRUG - REMARK] IV SCH ×4 (12:03)
[2020-05-13 12:22] VITALS: BP 139/65
--- NOTE | 2020-05-13 17:21 | NUR ---
Report called and given to LORETTA Patterson II at [facility].
[2020-05-13] MEDS: CADD PCA waste documentation MC PRN (17:56)
--- NOTE | 2020-05-13 17:58 | NUR ---
Patient to be transferred to [facility]. D10% @ 70 started for transport.
[2020-05-13 18:00] VITALS: BP 103/54
--- NOTE | 2020-05-13 18:07 | NUR ---
Patient dilaudid CADD dc'd. Percocet administered as ordered for transport. Yesenia BURGOS at [facility] notified.
--- NOTE | 2020-05-13 18:21 | NUR ---
Patient in room [facility]. I have received report from LESLYE Blackman and had the opportunity to ask questions and assume patient care.
--- NOTE | 2020-05-13 18:32 | NUR ---
Problems reprioritized. Patient report given, questions answered & plan of care reviewed with LESLYE Lawrence.
--- NOTE | 2020-05-13 19:38 | NUR ---
Problems reprioritized. Patient report given, questions answered & plan of care reviewed with LESLYE Smith at [facility].
== END 2020-05-13 19:38 | DRG 254 ==
LOC: ER 09:50 → ED HOLD 11:15 → SUR 3N 13:58
PROVIDERS: ADMIT Internal Medicine; ATTEND Family Medicine
PROC: BW211ZZ Computerized Tomography (CT Scan) of Abdomen and Pelvis using Low Osmolar Contrast (ICD-10-PCS; principal; 2020-05-05)
PROC: 3E02340 Introduction of Influenza Vaccine into Muscle, Percutaneous Approach (ICD-10-PCS; 2020-05-12)
DX: K63.2 Fistula of intestine (principal); T81.30XA Disruption of wound, unspecified, initial encounter; Z88.5 Allergy status to narcotic agent; Z88.8 Allergy status to other drugs, medicaments and biological substances; F41.9 Anxiety disorder, unspecified; J45.909 Unspecified asthma, uncomplicated; G89.29 Other chronic pain; I10 Essential (primary) hypertension; F32.9 Major depressive disorder, single episode, unspecified; N17.9 Acute kidney failure, unspecified; D63.8 Anemia in other chronic diseases classified elsewhere; E43 Unspecified severe protein-calorie malnutrition; G43.909 Migraine, unspecified, not intractable, without status migrainosus; Z91.040 Latex allergy status; E78.00 Pure hypercholesterolemia, unspecified; G47.00 Insomnia, unspecified; Z90.710 Acquired absence of both cervix and uterus; Z90.49 Acquired absence of other specified parts of digestive tract; Z86.74 Personal history of sudden cardiac arrest; Z85.3 Personal history of malignant neoplasm of breast; Z85.43 Personal history of malignant neoplasm of ovary; Z87.442 Personal history of urinary calculi; Z90.13 Acquired absence of bilateral breasts and nipples; Z68.34 Body mass index [BMI] 34.0-34.9, adult; Y83.8 Other surgical procedures as the cause of abnormal reaction of the patient, or of later complication, without mention of misadventure at the time of the procedure; Y92.89 Other specified places as the place of occurrence of the external cause; Z23 Encounter for immunization
CPT/HCPCS: 36415; 36573; 71045; 74176; 80048; 80053; 81001; 82948; 83735; 83880; 84100; 84134; 84478; 85007; 85025; 87081; 94640; 94760; 96374; 96375; 99285; C9113; G0378; J1170; J2405; J2543; J3480; J7030; J7626; Q0163; Q2039

== ENCOUNTER 2024-03-29 17:13 | Emergency (ER) | payer MEDICAID ==
[~2024-03-29] VITALS: Ht 154.9 cm; Wt 77.3 kg
[~2024-03-29 17:13] MED LIST changes: -ALBU18HF2 INH; +AMOX-580 PO; +BECL10.62 IH; -CHOL100044 PO; +COR3.125T PO; -CYAN10006 IM; +DIPH-1212 PO; -DIPH25CA83 PO; -DOCU-28 PO; -EST1T PO; +ESTR2TAB6 PO; +FENT1PAT10 TP; +FURO20TA4 PO; +GABA600T13 PO; +LISI2.5T14 PO; -LORA1TAB PO; +OLOP2.5D16 EACHEYE; -OMEP20TA23 PO; -ONDA4TAB9 SL; +OXYC1TAB17 PO; -PER10325T PO; +POTA-207 PO; +SERT-434 PO; -SERT100T PO
[2024-03-29 17:16] VITALS: BP 143/92; PULSE 98; RESP 16; O2SAT 98
[2024-03-29] MEDS: diphenhydrAMINE 50 mg/ml inj IM ONE (19:07)
[2024-03-29] MEDS: metoclopramide 5 mg/ml inj IM ONE (19:07)
[2024-03-29] MEDS: predniSONE 5mg tablet PO ONE (19:07)
[2024-03-29 19:21] VITALS: TEMP 97.4
== END 2024-03-29 19:22 | disposition home or self-care (01) ==
LOC: ER 17:16
DX: G43.909 Migraine, unspecified, not intractable, without status migrainosus (principal); E78.00 Pure hypercholesterolemia, unspecified; I10 Essential (primary) hypertension; J45.909 Unspecified asthma, uncomplicated; G89.29 Other chronic pain; F41.9 Anxiety disorder, unspecified; F32.A Depression, unspecified; Z91.040 Latex allergy status; Z88.8 Allergy status to other drugs, medicaments and biological substances; Z91.018 Allergy to other foods; Z91.048 Other nonmedicinal substance allergy status; Z79.899 Other long term (current) drug therapy; Z79.2 Long term (current) use of antibiotics; Z90.49 Acquired absence of other specified parts of digestive tract; Z98.890 Other specified postprocedural states; Z90.710 Acquired absence of both cervix and uterus; Z85.3 Personal history of malignant neoplasm of breast; Z85.43 Personal history of malignant neoplasm of ovary; Z87.442 Personal history of urinary calculi
CPT/HCPCS: 96372; 99284; J1200; J2765; J7512

== ENCOUNTER 2024-12-28 12:30 | Emergency (ER) | payer MEDICAID ==
[~2024-12-28] VITALS: Ht 149.9 cm; Wt 81.9 kg
[~2024-12-28 12:30] MED LIST changes: +CARV3.1232 PO; -COR3.125T PO; +GABA-1405 PO; -GABA600T13 PO
[2024-12-28 12:48] VITALS: TEMP 97.8
[2024-12-28 13:08] LABS: MEAN PLATELET VOLUME 9.6 FL (7.4-10.4); RED CELL DISTRIBUTION WIDTH 17.5 % (11.5-14.5)
[2024-12-28 13:25] LABS: CREATININE 1.03 MG/DL (0.40-0.90); TOTAL CARBON DIOXIDE 26.7 MMOL/L (24-32); eCRCL 39 ML/MIN; eGFR 54 ML/MIN
[2024-12-28 13:39] LABS: LEUKOCYTE ESTERASE ,URINE NEGATIVE (Neg); NITRITES, URINE NEGATIVE (Neg); OCCULT BLOOD,URINE NEGATIVE (Neg)
[2024-12-28 13:44] LABS: UA COLLECTION TYPE CLN CATCH MIDSTREAM
[2024-12-28] MEDS: morphine 4 MG/ML inj SYRINge IV ONE (15:07)
[2024-12-28] MEDS: ondansetron/PF 4mg/2ml inj IV ONE (15:07)
--- NOTE | 2024-12-28 15:51 | RADIOLOGY REPORT ---
Exam: CT CT ABDOMEN PELVIS History: LLQ ABDOMINAL PAIN Comparison Study: CT ABDOMEN PELVIS on DOS: 05/05/20, CT ABDOMEN PELVIS on DOS: 12/30/19 TECHNIQUE: Multidetector CT of the abdomen and pelvis without IV contrast. Axial, coronal and sagitta l multiplanar reformats were obtained from the axial data set by the technologist. Radiation Dose Information: CT Dose: CTDI volume is 29.32 mGy. Dose-length product is 1494.49 mGy*cm FINDINGS: Bibasilar atelectasis/scarring. Partially visualized heart is unremarkable. Liver, spleen, gallbladder, pancreas and adrenal glands unremarkable. Mild bilateral renal pelviectasis. Otherwise, kidneys, ureters and urinary bladder unremarkable. Trupti licha is not definitely visualized. Question hysterectomy. Gastric wall thickening. Small bowel loops unremarkable. Appendix is not definitely visualized. Wit hout visualization of the appendix, can not exclude acute appendicitis. Postsurgical changes of the a scending colon, proximal transverse colon sigmoid. Decompression of the descending colon. Otherwise, moderate to large amount of fecal material within the colon. Mild fat stranding adjacent to the sigmo id area of anastomosis with mild wall thickening. No evidence of intraperitoneal free air or free fluid. No evidence of aortic aneurysm. Mild atherosclerotic calcification of the aorta and bilateral iliacs . No significant lymphadenopathy. Defect over the ventral left lower abdominal wall musculature with associated subcutaneous fat strand ing which most likely represents postsurgical changes. [id number] atrophy of the ventral abdomi nal musculatures. Partially visualized left breast implant with the right implant possibly outside th e field of view. No evidence of acute osseous abnormalities. IMPRESSION: Postsurgical changes of the colon with mild wall thickening and adjacent fat stranding over the area of sigmoid anastomosis. Correlate for mild colitis. Decompression of the descending colon. Otherwise, moderate to large amount of fecal material within the colon. Mild gastritis.
--- NOTE | 2024-12-28 15:52 | ELECTROCARDIOGRAPH REPORT ---
[facility] Test Date: 2024-12-28 Test Time: 15:50:42 Pat Name: STACY COLBERT Department: EMERGENCY ROOM Room: Gender: F Slaughterer Religious Ritual: : 1960 Requested By: PHILOMENA BERNARDO Order Number: [id number] Reading MD: Measurements Intervals [place] Rate: 72 P: 64 NV: 175 QRS: 44 QRSD: 97 T: 30 QT: 407 QTc: 446 Interpretive Statements Sinus rhythm Borderline low voltage, extremity leads Please click the below link to view image of tracing.
--- NOTE | 2024-12-28 16:39 | RADIOLOGY REPORT ---
CHEST RADIOGRAPH Indication: SEPSIS Technique: Single frontal view of the chest was obtained Comparison: CHEST,SINGLE VIEW on DOS: 12/11/20, CHEST,SINGLE VIEW on DOS: 05/09/20 FINDINGS: Lines and Tubes: None Lungs: No focal consolidation. Pleura: No effusion. No pneumothorax. Cardiomediastinal contours: Unremarkable Bones: No acute osseous abnormality. IMPRESSION: No acute cardiopulmonary disease.
--- NOTE | 2024-12-28 16:52 | Physician Documentation ---
History of Present Illness Chief Complaint: Abdominal Pain Stated Complaint: ABD PAIN Time Seen by MD: 13:01 Primary Medical Doctor: DR. RODRIGUEZ Source: patient Mode of Arrival: Ambulatory Exam Limitations: no limitations HPI 64-YEAR-OLD FEMALE WITH CHIEF COMPLAINT LOWER ABDOMINAL PAIN THAT STARTED ABOUT FIVE DAYS AGO. SHE STATES THE PAIN IS A 7/10 IN SEVERITY. SHE REPORTS SHE HAS HAD 13 SURGERIES ON HER ABDOMEN WITH DR. STAPLES BUT HAS BEEN FINE FOR THE PAST FEW YEARS. SHE CAN NOT RECALL WHY SHE HAD THE SURGERIES ON HER ABDOMEN IN 2020. SHE REPORTS SHE HAS BEEN HAVING NORMAL BOWEL MOVEMENTS, NO URINARY SYMPTOMS. SHE FEELS NAUSEATED BUT NO VOMITING. NO FEVER OR CHILLS. THE REASON SHE DECIDED TO COME TO THE ER TODAY IS BECAUSE THE PAIN IS JUST NOT GETTING BETTER SHE DENIES WORSENING OF SYMPTOMS. Medication Reconciliation Allergies: Coded Allergies: iodine (Verified Allergy, Severe, THROAT CLOSES, 03/29/24) ketorolac tromethamine (Verified Allergy, Severe, 03/29/24) latex (Unverified Allergy, Severe, THROAT CLOSES, 03/29/24) aspirin (Unverified Allergy, Intermediate, 03/29/24) codeine (Unverified Allergy, Intermediate, 03/29/24) hydrocodone (Unverified Allergy, Intermediate, HIVES, 03/29/24) nortriptyline (Unverified Allergy, Intermediate, 03/29/24) sumatriptan (Unverified Allergy, Intermediate, 03/29/24) sumatriptan succinate (Unverified Allergy, Intermediate, 03/29/24) nitroglycerin (Verified Allergy, Unknown, migraines, 03/29/24) Uncoded Allergies: CHOLINE (Allergy, Intermediate, 12/21/09) sour cream (Allergy, Mild, hives, 08/23/12) Scheduled Amox Tr/Potassium Clavulanate 875/125 MG (Augmentin 875/125 MG), 1 TAB PO BID Beclomethasone Dipropionate (Qvar Redihaler), 2 PUFFS IH BID, (Reported) Carvedilol (Carvedilol), 3.125 MG PO DAILY Diphenhydramine Hcl (Banophen), 2 TAB PO HS, (Reported) Estradiol (Estradiol), 1 MG PO DAILY, (Reported) Fentanyl Patch 50 MCG* (Duragesic 50 MCG*), 1 PATCH TP Q72H, (Reported) Furosemide (Furosemide), 1 TAB PO DAILY Gabapentin (Gabapentin), 1 TAB PO TID, (Reported) Lisinopril (Lisinopril), 2.5 MG PO DAILY Metronidazole* (Flagyl*), 1 TAB PO Q8H Olopatadine HCl (Olopatadine HCl), 1 DROP EACHEYE DAILY, (Reported) Potassium Chloride* (K-Dur*), 1 TAB PO DAILY Sertraline HCl (Sertraline HCl), 2 TAB PO DAILY, (Reported) Trazodone HCl (Trazodone HCl), 4 TAB PO HS, (Reported) Scheduled PRN Oxycodone Hcl/Acetaminophen (Oxycodone-Acetaminophen 10-325), 1 TAB PO TID PRN for severe pain (7-10) Past Medical History Past Medical History: Migraine, High Cholesterol, Hypertension, Asthma, Hernia, Kidney Stones, Chronic Pain, Breast Cancer, Ovarian Cancer, Anxiety, Depression Past Surgical History: appendectomy, , hysterectomy, tonsillectomy, other Other Past Surgical History: Double mastectomy, laparoscopies, breast implants Patient History: Cardiac arrest FATHER, , Age: 60 years and older, Cause: Cardiac disease MOTHER, , Age: 60 years and older, Cause: AMI (acute myocardial infarction) Smoking Status: Never smoker Alcohol Use: None Drug Use: none Lives with: S/O Lives In: Home Occupation: disabled Past Social History: Review of Systems All Other Systems at this time: Reviewed and Negative Physical Exam Vital Signs: Temperature: 97.8, Source: Temporal, Heart Rate: 107, Respiratory Rate: 12, BP: 175/94, Pulse Oximetry: 96, Weight: 81.900 Oxygen Flow Rate: 0 Physical Exam GENERAL: Alert, no acute distress. HEENT: NCAT, EOMI, PERRL, normal oropharynx, moist oral mucosa. NECK: Supple, trachea midline. CARDIAC: Regular rate and rhythm, no murmurs, rubs, or gallops. Equal distal pulses. No lower extremity edema, cap refill less than 2 seconds. RESPIRATORY: Equal breath sounds, clear to auscultation bilaterally, no respi ratory distress. GASTROINTESTINAL: Non distended, soft, MILD GENERALIZED TTP, No guarding or rebound. NO PERITONEAL SIGNS. MUSCULOSKELETAL: Normal range of motion, nontender, no swelling. Normal gait. NEUROLOGICAL: Awake, alert, and oriented x 3. SKIN: Warm/dry, no pallor, no rash. PSYCH: Alert and appropriate. Affect congruent with mood. Speech is clear. Good eye contact. Progress Results/Orders Reviewed/noted all lab results: Yes Results/Orders Orders - PHILOMENA BERNARDO T PA Ct Abdomen Pelvis (12/28/24 13:58) Culture Blood (12/28/24 15:42) Chest,Single View (12/28/24 16:09) Completed Orders - RINKU BERNARDOSY T PA Ct Abdomen Pelvis (12/28/24 13:58) Morphine 4mg/Ml Inj. (Morphine Inj.) (12/28/24 14:00) Ondansetron Inj. (Zofran 4mg/2ml Vial) (12/28/24 14:00) Electrocardiogram (12/28/24 15:42) Chest,Single View (12/28/24 16:09) Procalcitonin (12/28/24 15:42) Lacticsepsis (12/28/24 15:42) Hydromorphone 1 Mg/Ml/Pf (Dilaudid Inj.) (12/28/24 15:45) Metronidazole Tablet (Flagyl Tablet) (12/28/24 16:25) Medications Received in ER Medications (Trade) Dose Ordered Sig/Aleida Route PRN Reason Start Time Stop Time Status Last Admin Dose Admin (morphine inj.) 4 mg ONCE ONCE IV 12/28/24 14:00 12/28/24 14:01 DC 12/28/24 15:07 4 MG (Zofran 4mg/2ml vial) 4 mg ONCE ONCE IV 12/28/24 14:00 12/28/24 14:01 DC 12/28/24 15:07 4 MG (Dilaudid inj.) 1 mg ONCE ONCE IV 12/28/24 15:45 12/28/24 16:00 DC 12/28/24 16:18 1 MG (Flagyl tablet) 500 mg ONCE ONCE PO 12/28/24 16:25 12/28/24 16:26 DC 12/28/24 16:44 500 MG Vital Signs 12/28/24 12/28/24 12/28/24 12/28/24 12:48 13:27 15:07 15:33 Temp 97.8 Pulse 107 Resp 18 16 18 14 B/P (MAP) 175/94 Pulse Ox 96 O2 Flow Rate 0 12/28/24 16:18 Resp 12 Laboratory Tests Test 12/28/24 12:59 12/28/24 13:29 12/28/24 15:58 White Blood Count 18.2 H Red Blood Count 4.93 Hemoglobin 11.6 L Hematocrit 36.7 Mean Corpuscular Volume 74.5 L Mean Corpuscular Hemoglobin 23.5 L Mean Corpuscular Hemoglobin Concent 31.5 L Red Cell Distribution Width 17.5 H Platelet Count 304 Mean Platelet Volume 9.6 Neutrophils (%) (Auto) 82.8 H Lymphocytes (%) (Auto) 13.7 L Monocytes (%) (Auto) 2.3 Eosinophils (%) (Auto) 0.3 Basophils (%) (Auto) 0.9 Neutrophils # (Auto) 15.1 H Lymphocytes # (Auto) 2.5 Monocytes # (Auto) 0.4 Eosinophils # (Auto) 0.0 Basophils # (Auto) 0.2 CBC Comment Sodium Level 134 L Potassium Level 3.7 Chloride Level 102 Carbon Dioxide Level 26.7 Anion Gap 5 L Blood Urea Nitrogen 8 Creatinine 1.03 H Estimated GFR/1.73 m2 54 BUN/Creatinine Ratio 7.8 L Glucose Level 117 H Calcium Level 8.7 Magnesium Level 1.9 Total Bilirubin 0.3 Aspartate Amino Transf (AST/SGOT) 15 Alanine Aminotransferase (ALT/SGPT) 15 Alkaline Phosphatase 106 Total Protein 8.1 Albumin 3.4 Globulin 4.7 H Albumin/Globulin Ratio 0.7 L Lipase 23 Procalcitonin < 0.05 Chemistry Comments Urine Specimen Description Cln catch midstream Urine Color Yellow Urine Clarity Clear Urine pH 6.0 Urine Specific [place] 1.015 Urine Protein Negative Urine Glucose (UA) Negative Urine Ketones Negative Urine Occult Blood Negative Urine Nitrite Negative Urine Bilirubin Negative Urine Urobilinogen 0.2 Urine Leukocyte Esterase Negative Urine Culture Indicated Not ind Volume Urine Centrifuged 10 ml Urine Comment Lactic Acid Level 0.9 Medical Decision Making Differential Dx:Considerations: Include: AAA, -Complete, - Incomplete, -Inevitable, -Missed, -Threatened, Abruptio placentae, Angina/[place], Aortic dissection, Appendicitis, Bowel obstruction, Cholangitis, Cholelithasis, Constipation, Diverticular disease, Esophageal rupture, Esophagitis, Gastritis/PUD, Gastroenteritis, GI hemorrhage, Hernia, Hepatitis, Inflammatory BD, Ischemic bowel, Ovarian cyst/torsion, Pancreatitis, PID, Porphyria, Trauma, intraabdominal, Urinary obstruction, Urinary tract infection, Urolithiasis, Other Additional Comments PATIENT HAS NO PERITONEAL SIGNS WBC NORMAL VITAL SIGNS NORMAL CT SCAN SHOWS MILD INFLAMMATION IN AREA OF PRIOR SURGERY WE UTILIZED SHARED DECISION MAKING AND DISCUSSED ADMISSION VS DISCHARGE WITH BOWEL REST AND FLAGYL WHICH IS WHAT PATIENT WANTED AND THIS WAS REASONABLE GIVEN THE REASONS STATED ABOVE Departure Time of Disposition: 16:59 Disposition: 01 HOME / SELF CARE / HOMELESS Impression: Primary Impression: Non-specific colitis Condition: Stable Discharge Instructions: Colitis Additional Instructions: BOWEL REST FOLLOW LIQUID DIET AND GRADUALLY ADVANCE TOLERATED WHITE COUNT ELEVATED BUT REST OF LABS UNREMARKABLE AND VITALS NORMAL CT SCAN SHOWED SOME INFLAMMATION IN AREA OF PRIOR SURGERY AND THUS RECOMMENDED BOWEL REST AND FLAGYL Referrals: NO PRIMARY CARE PROVIDER (PCP) Prescriptions Metronidazole* (Flagyl*) 500 Mg Tablet 1 TAB PO Q8H for 10 Days, #30 TAB Prov: PHILOMENA BERNARDO 12/28/24 Education Educated: Patient Educated regarding: diagnosis, treatment, need for follow up Signature Scribe Signature: x Attestation: PHILOMENA Swain Dec 28, 2024 16:52
[2024-12-28] MEDS ORDERED: METR-159 PO (16:59)
[2024-12-28 17:29] VITALS: BP 141/73; PULSE 86; RESP 16; O2SAT 94
== END 2024-12-28 17:31 | disposition home or self-care (01) ==
LOC: ER 12:30
DX: K52.9 Noninfective gastroenteritis and colitis, unspecified (principal); E78.00 Pure hypercholesterolemia, unspecified; I10 Essential (primary) hypertension; J45.909 Unspecified asthma, uncomplicated; G43.909 Migraine, unspecified, not intractable, without status migrainosus; F32.A Depression, unspecified; F41.9 Anxiety disorder, unspecified; Z85.3 Personal history of malignant neoplasm of breast; Z85.43 Personal history of malignant neoplasm of ovary; Z88.5 Allergy status to narcotic agent; Z88.6 Allergy status to analgesic agent; Z88.8 Allergy status to other drugs, medicaments and biological substances; Z90.49 Acquired absence of other specified parts of digestive tract; Z90.710 Acquired absence of both cervix and uterus
CPT/HCPCS: 36415; 71045; 74176; 80053; 81003; 83605; 83690; 83735; 84145; 85025; 87040; 93005; 96374; 96375; 99285; J1171; J2270; J2405